=== PATIENT | male | born 1975 | race Caucasian/White ===

== ENCOUNTER 2023-07-13 12:33 | Outpatient (OUT) | payer BC, SELFPAY ==
[2023-07-13 12:52] LABS: Basophils Absolute Auto 0.1 10^3/uL (0.0-0.1); Basophils Percent Auto 0.9 % (0.2-2.0); Eosinophils Absolute Auto 0.1 10^3/uL (0.0-0.7); Eosinophils Percent Auto 0.6 % (0.9-7.0); Hematocrit 45.1 % (42.0-54.0); Immature Granulocytes Abs Auto 0.02 10^3/uL (0.00-0.03); Immature Granulocytes Pct Auto 0.2 % (0.0-0.5); Lymphocytes Absolute Auto 1.8 10^3/uL (1.2-3.8); Lymphocytes Percent Auto 21.5 % (20.5-60.0); Mean Corpuscular Hemoglobin 20.4 pg (25.9-34.0); Mean Corpuscular Volume 65.8 fL (80.0-94.0); Mean Platelet Volume 8.8 fL (9.5-13.5); Monocytes Absolute Auto 0.5 10^3/uL (0.3-0.8); Monocytes Percent Auto 6.3 % (1.7-12.0); Neutrophils Absolute Auto 5.8 10^3/uL (1.4-6.5); Neutrophils Percent Auto 70.5 % (43.0-75.0); Platelet Count 271 10^3/uL (150-450); Red Blood Count 6.85 10^6/uL (4.70-6.10); Red Cell Distribution Width 18.7 % (11.0-15.0); White Blood Count 8.2 10^3/uL (4.0-11.0)
[2023-07-13 13:18] LABS: Estimated Average Glucose 148 mg/dL; Glycohemoglobin A1C 6.8 % (4.5-6.2)
[2023-07-13 13:52] LABS: Prostate Specific Antigen Scrn 0.45 ng/mL (<=4.00)
[2023-07-13 14:07] LABS: Alanine Aminotransferase 36 U/L (16-63); Albumin Globulin Ratio 0.9; Albumin Level 3.8 g/dL (3.4-5.0); Alkaline Phosphatase 61 U/L (46-116); Anion Gap 17.7; Aspartate Amino Transferase 17 U/L (15-37); BUN Creatinine Ratio 16.7; Bilirubin Direct 0.1 mg/dL (0.0-0.2); Bilirubin Total 0.5 mg/dL (0.2-1.0); Calcium 9.2 mg/dL (8.5-10.1); Carbon Dioxide 25.2 mmol/L (21.0-32.0); Chloride 103 mmol/L (98-107); Chol HDL Ratio 4.9; Cholesterol 196 mg/dL (<=200); Estimated GFR (African America >60 (>=60); Estimated GFR (Non-African Ame >60 (>=60); Globulin 4.1 g/dL; Glucose 187 mg/dL (74-106); HDL Cholesterol 40 mg/dL (40-60); Potassium 3.9 mmol/L (3.5-5.1); Sodium 142 mmol/L (136-145); Thyroid Stimulating Hormone 1.439 uIU/mL (0.358-3.740); Total Protein 7.9 g/dL (6.4-8.2); Triglycerides 186 mg/dL (<=150); VLDL CHOLESTEROL 37.2 mg/dL
== END 2023-07-13 12:34 | disposition home or self-care (01) ==
PROVIDERS: PCP Family Medicine; Visit Provider Family Medicine
DX: Z00.00 Encounter for general adult medical examination without abnormal findings (principal); E55.9 Vitamin D deficiency, unspecified; Z12.5 Encounter for screening for malignant neoplasm of prostate
CPT/HCPCS: 36415; 80048; 80061; 80076; 82306; 83036; 84443; 85025; G0103

== ENCOUNTER 2023-11-13 19:55 | Outpatient (OUT) | payer BC, SELFPAY | END 2023-11-13 19:56 | disposition home or self-care (01) | LOC: SLEEP 19:55 | PROVIDERS: PCP Family Medicine; Visit Provider Family Medicine | DX: G47.33 Obstructive sleep apnea (adult) (pediatric) (principal) | CPT/HCPCS: 95810 ==

== ENCOUNTER 2023-11-20 20:58 | Outpatient (OUT) | payer BC, SELFPAY ==
--- OUTSIDE RECORDS SUMMARY | 2023-11-20 21:01 | XMS_ITS | CCD ---
Author Name Unknown Address [address] [place] [address] Organization [facility] Care Team Providers Care Editorial Assistant Name Role Phone OUMAR, DR PETER Wei Admitting Unavailable OUMAR, DR PETER Wei Attending Unavailable OUMAR, DR PETER Wei Primary Care Unavailable OUMAR, DR PETER Wei Consulting Unavailable OUMAR, DR PETER Wei Admitting Unavailable OUMAR, DR PETER Wei Attending Unavailable OUMAR, DR PETER Wei Primary Care Unavailable JERMAINE, DR BERNARDINO Bloom Consulting Unavailable NATHANIELERER, DR PETER Wei Consulting Unavailable Amber Mendoza Unavailable PETER OSEGUERA Attending Unavailable Medications Current Medications Medication Drug Class(es) Dates Sig (Normalized) Sig (Original) [id number] 200 actuat albuterol 0.09 mg/actuat metered dose inhaler (1 source) beta2-Adrenergic Agonist Start: 10-06-2022 take 2 puff(s) by inhalation every four hours as needed Albuterol Sulfate HFA 108 (90 Base) MCG/ACT 2 puffs as needed Inhalation every 4 hrs Sep, Active Aspirin (1 source) Platelet Aggregation Inhibitor, Nonsteroidal Anti-inflammatory Drug Baby Aspirin Active atorvastatin 40 mg oral tablet (1 source) HMG-CoA Reductase Inhibitor Atorvastatin Calcium 40 MG Oral for 90 Days Active azithromycin 250 mg oral tablet (1 source) Macrolide Antimicrobial Start: 10-06-2022 Azithromycin 250 MG 2 tablets on the first day, then 1 tablet daily for 4 days Orally Once a day for 5 day(s) Sep, Active dapagliflozin 10 mg oral tablet (1 source) Sodium-Glucose Cotransporter 2 Inhibitor Farxiga 10 MG Oral for 90 Days Active Dexcom G6 Transmitter - (1 source) Dexcom G6 Transmitter - for 90 Days Active glipiZIDE 10 mg oral tablet (1 source) Sulfonylurea glipiZIDE 10 MG Oral for 90 Days Active 24 hr metFORMIN hydrochloride 500 mg extended release oral tablet (2 sources) Biguanide metFORMIN HCl ER 500 MG Oral for 90 Days Active metFORMIN HCl Ac tive methylPREDNISolone 4 mg oral tablet (1 source) Corticosteroid Start: 10-06-2022 methylPREDNISo lone 4 MG as directed Orally Once a day for 6 days Sep, Active Problems Active Problems Problem Classification Problem Date Documented Da te Episodic/Chronic Chronic obstructive pulmonary disease and bronchiectasis (1 source) Bronchitis, not specified as acute or chronic Episodic Immunizations and screening for infectious disease (2 sources) Contact with and (suspected) exposure to other viral communicable diseases; Translations: [Contact with and (suspected) exposure to other viral communicable diseases] Episodic Nutritional deficiencies (1 source) Vitamin D deficiency, unspecified; Translations: [VITAMIN D DEFICIENCY UNSPECIFIED] Onset: 02-09-2022 Chronic Other screening for suspected conditions (not mental disorders or infectious disease) (1 source) Encounter for screening for malignant neoplasm of prostate; Translations: [ENC SCREEN MALIG NEOPLASM PROSTATE] Onset: 02-09-2022 Episodic Past or Other Problems Problem Classification Problem Date Documented Da te Episodic/Chronic Other non-traumatic joint disorders (4 sources) Pain in right shoulder; Translations: [PAIN IN RIGHT SHOULDER] Onset: 07-19-2021 Episodic Results Test Name Value Interpretation Reference Range Facility Quick Fluon 10-06-2022 FLUAV Ab CF (S) [Titer] Negative [employer] Other FLUBV Ab CF (S) [Titer] Negative [employer] Other Coding Summaryon 04-04-2022 Coding Summary HTMLBase 64 TgxqjbxuHRi1fMj+PGh lYWQ+LB4VIDWiZ83cmM MpyN2YU6rFUB5EFBQKH ZWCAD9DBT1vtZS6TMqj F4WswoGw LsbfgNKoVU57KBr7IPD 7sEqhGBjjwM4toBPoO2 m2HrZwDM33lX75ADneP TIeMpL4SjEazsxbpPJp Z2veMdRwzEJyLxk+PHR hYmxlIHdpZHRoPScxMD WdVfFsuWynLO1uSj7vO GVyLWNvbGxhcHNlOiBj b2wbMRLdUWkqPJ0jrGl mP2MxrCJ4LSHag0j2It 48dHI+EXBpBRX7oQdfK Gahn785UdVxs0npUYC4 sCQdUKyuUZD3O13ab6P 6HIDsNVOrHAZ6eIO3hZ 6nbCtggntkR4FhjUBvP fS1KPU4yWKrvW6yiPfq aesnaH1tStl+Q83LMB4 LOKMHDG8RMzd2F2DaIf wvdHI+JP52SWThGT09b OUcxMOfc5vfgLq9TgUp EEPqCHU2kLbpDYbmk0U oRLTbU31ndIIvi7Q8CY QpuPagnMTcOlZshUO5n S2hIEncgwoou7xyvqnc Ayxyy7xxfi64hX15T95 kSSjpFVFuNPF4LKReLY EexRqczu6nqO7fHy9+I Xfbx6zyt3qtvUl7RlOl FQKglnKxbDibNNK8l9I wXs76P9VczLzsq3HuLh u2ri79uZZmn6L5zCR1P DroVZZthS4mNIkjZqH5 PMAhMyAgcY19cOJyPWm lRc5rmMctrMnaCO0rLO MsgezxZWGnrO3zIOEct GZyhKezRT0zFTEwqrns t541RkPwHQK8QXBzoYB pZ4QmhZ2vPjAsZSQtLS UuB1HhuGZdEGevV305H SxnVoW3AFAytpWiB8Zn HYJjjPqgDkT3y3F9Sm2 Fo6QzqnppNMN2VPjeCV Q7KgNhCdVlUqM7E8FeP vs4GTNcbApuTZ9tA8Am DEKqlauhznzoaEQ9TJD wOIQhsU25dXQrIKqeWr 0tr7L8e109CXJbLOZqo A94Vg4ilGgzHOJlpLMK dE4zlwfnt1wknjguKxW fPSAzYNu6ECd2SCKedY upWkSkLFU1GsM0GSQ7t YCbqN4vrXceuhbelC7g Oyc+P30pjA4gDLC7BZN 1hvngXIPxyeJyBM92HB 56E8HsYoskzRXmvHG+P MPtyqBorIlgEY4bAzSs h6sei6CiKZykV4HsUOH wHWblUfq9RTSkQNQ3eO J2nI4qMSWhMSbvm6W3s IV3C8CfcpDqgr5ha4pq KWYoMEfqN97crZTas1R 6TTIrqXA4QVMylQarJm TwpM70Rwp+PGNvbGdyb 6HpThlqr6tvr1lkxJl3 IjMwJSIgdmFsaWduPSJ 9a4ObAa82K90dGZfvUT RoPSIxNSUiIHZhbGlnb q5zmX5wPl4+PGNvbCB3 yWF2bC0hMNBiEoX6MTn dV714AeXwfRXrMjuhr0 xqw8cbrKq4TyPaSWDyy eWbfVqxKZN6v5FmWk05 V13iIIngLQVyVOEzVNB dYREysEwdkw4edL4oZl 8+WF6sg7shyp75lC98n HI+LOCxBIT6bQnjNHpt XXEpmA3uAPbjAoI2YKV xClGgjF13vJIoMVijEt 0dzHmfyXrhKH9vPEGyv rfnt733QfIqa5xcZBBp bDJqTRklFFC6L29bw6G 6JYLjVMKvLYB9eGG9jB 1hbGlnbjogbGVmdDsgd fIzqArmVAzeAQwfW088 IHRvcDsnPlBhdGllbnQ xDzJfVUi8H8YwMnq6NH IdhGdbTC8kxRIiMGuoD g1flQatuWvyTE2eJZRb gruar818LoQck6vvKHR rpPLqBFqiOBN8G82jb2 W0IESoMCDiHVL3xKT4y D5lzPbvetdgqMVkjQvc iuPfyPybPNczUTxiU00 6IHRvcDsnPkJpcnRoIE WiwPS1IN36LC67dTFbl 4D4yBN4W6UkZUHymteh gzbafDM9OWQpPOFvbW1 7Yq4ywUpoXm0sPLLfYT A8YQWbnPSyF7HrlK4eP yXlZMDaSOVpC4KflODc LFvuT516UCshTmW7GVD muwIlV6ZnWVNilKtlIz N7i1A6Xq1WR6A6RN00F W08vSOyb1U1gNF5R3Ob IGTuypymlkdroHO5OOR eTTIblY81Ql7mmKdeVo 8tOUNqFBQ7IZUveDVdS 7FbfC2yYwIfYNIwSTTd K9DfzKUnEAcmY667LWg jYnT9SVVmsgPoM3LdPC VyxLvhLoD7p9C7Hw8QA Ei0UQ24CD80yMHlg7Y5 yUW8V1FmYPUsrluhkqv jcWQ0SIXjLLQfmT10Np 4ilQwcDs5kJAXxBDZ6A MTlmHXwW8JksH2sSzQy MDHrHNIdG2DxvVAiUMs eX024FTenPyA6SYIwoy SzP8FbJLOmuYqqLiT8r 3Y9Iz6MOUZqYI02XQE4 uDO8HJ16TQ97N1IpZrl vdGFibGU+PHRhYmxlIH dpZHRoPScxMDAlJyBzd RkqPD5aOf8aXWWoGNKg hNuddQVeZzTwy9kkAXO pTPpjZN5tiQztV7VzsK B3TPIuj5a0Ye32N31eF 3JvdXA+DMWntVR0mRX9 zC2sIgEuIuJ8SXslC69 6SzFbpDQqOoarx1idh0 bxkPr3XzK3HHXyjcZrq YhtPKE0k4WkEx68I43f IHdpZHRoPSIxNSUiIHZ ciVemni8ffQ3cGg9+PG HaoDO3zWH4cA0rZpHvE hX8UIncU720SgXhnWTr Ixwee2kaa4zivTb9NqP pXYJgfrQnoUfeJKH4w9 XzUz65B3BgkOtmv1KiQ np5zg55yEQyp4I4tUF0 F3PqIWIeuvjrfJKlzVn pRY6qOCLyyjlzKRGpuN 5nALGdA5f7RqTrRyI8P TqwM6OyzqV0IWPfqXTp BSvoIGP3L07va7K1QBY jQIYeUES4dJR7jX6jhS lnbjogbGVmdDsgdmVyd StjTQvlJTwbR969QLHn cHksCFSsmH2zKYLtkIB qgYqpZO3zIYHwfixiCx RXSVNTLCBNQVRUSEVXI I2WL8rJOIm7G2HfUbl5 HKOdyGmzNA1ejGQfNBi jLc5igZqovSlgCS6xVA ItcdjlNNRrwD9yKQWll EBhuNavVF0wKWOiliex h701GhCqNQB5XEZzhBO xQ3GsgL9wOwCvVRKuTC CmA9ElbWOlGYmsL613J KkcJrK9LWPcaeZpN3Rz GBMuaJsqSwS6w0U3Jk9 bVR5kXy2wXNj5FA48NE 16oUQmp7M0jHY9Q1BrQ UPpvrzyjkumkNF2NHAs GXRehZ23yUOjFIhyRg7 wk3H4h470UHNfVVLjdO 09Yx6lsGlwLQAgvGUPb E6pjznqk2atfzhnQoPr KQVoDVu3HBz7UICzjKe tQtJtBHQ9OgZ8MRK6aN HxjY5dpJujgutqaB5rE yc+CSJxXYTkjsR8F5Sk Gog6GXLcdKdsRA2edTL xLWiqMo0cvBaqiSveGS 3qYOInskurYUUmyM9nS LAlwKBzvFsmUA4sRTTd otdqm885ZdGnKYS2TXO gwZFpU2FrzS4zJnGwQX BgTUQcS6PmzKKjBFzeF 582BOqgZeW2XCYsdbWl W8FxSILhmGxrBuH3v5E 3Vl1MKLeREV22OK76eN Nhj7Z8tZM9U2GuZXOjk acwndwlxJE4OZAlVDEa kB55tREhHGpxQf2ex5H 5c072QHVtPQEtwP49Re 3zoGxcDEIehIDThN0nb dnwb8qkamswXnYwBXOp PTa8WKl4BXXaaLrsGzB rXBP8CyI1PRD0zWExvC 0rgTlovrvexM2mApe+T 5I8D9UcPzintRU+PC90 FHLxAY01iJWatEMfc3s sbIg7OlChDXMwMBA0rP zmUUmpu1CxPTPmX01kv EGpe9C7AFDhvSihrIOx FwZroTG8qL8pOIvraip pr4rjxnrlSofpt2hyrf 36wO29M20gGUsoGQPgQ MTmBPHtCSZxdUwlyg5b pV1mDo3+KZCfkFI4sXO 5eV9tIeVyVxH5DJetP0 87MgWkdIBkVwjbi4bnw 6kryWn6NiHpWQSjfbEy jOpbVJD7y1NbVn99G03 sIHdpZHRoPSIyMCUiIH PeiItqgv5pkE5iTy6+P P5ie5dqmk15jY14eUY+ NNJfJYN6bMntTYtlRLB wtH6gGUvjJvG5OXRtUh RzsQ65fEFpSZcjUq7io PxoiFihST6sZSVbxejv d416YpGuz2hwNGVpcME pBIpyXNO5E21rz0C2DN NvDLYaWPR1gOM7jT7zc GlnbjogbGVmdDsgdmVy tPjiKUgqIWolV469CMQ vsHdpMnBycRXuB9qbkf VMOO9fEwwelML+PHRkI TU0eKndJUavSMPgxN4k ZBTuI4r6CqJyCnT0VAr hP0QfglZ4TDZakKOtNM CxyWZJcV5qvtcqq2ebd zmmSoArUAGoAKs0SOq9 CICodOjkLbCzOOA7DpD 9KFY6zEFliF9hbJayrw jwbF7tPdh+RklOOjwvd GQ+OCJnOGQ7rTxlYNow PVMcmW0lGVVcA4a2KtL aUtS3OJggZ7CxfjI1IG EdxJWhVFXjgRLGyW4zh vfmc9ngbysmFjWoBGUi EGr5ITu9CTVigDxjRgP oTPC0YsU3LXT7jWGfcI 3olEnysqryjT5fSoj+T VJOOjwvdGQ+PHRkIHN0 eNeuQEvqNPPesA3yJKJ gR6v9LwGeSyB7VUciM9 XapuV3HFQrkDBzNBXdu YRHkT5ouutqd0awzxlx RdMzTTXjBEy8BPj0SCC ewUbyVdIiRMB8NvH9CR C5dAHkoV2huJrablpsk G9wOyc+WIL2RLH2DP11 HA91O7DcZnixxVXphYW +PHRhYmxlIHdpZHRoPS zfTFEhFoOglEunJP0wT l1tDRTiFPLqtQvfmDZv OiB (more content not included)... Normal [facility] ED Clinical Summaryon 2021 ED Clinical Summary [facility] ? Urgent Care [address] [place], [place] [id number] Clinical Summary PERSON INFORMATION Name: KRISTI GOMEZ Age: 46 Years Sex: MALE : 1975 MRN: Acct#: Visit Reason: Hip pain; RIGHT HIP PAIN Arrival: 03/29/2022 15:33:12 Discharge: 03/29/2022 17:49:00 LOS: 000 02:16 Check In: 03/29/2022 15:33:12 Checkout: 03/29/2022 17:49:00 Address: [address] [place], [place] [address] [address] PCP: PETRE OSEGUERA PROVIDER INFORMATION Provider Role Assigned Unassigned Reji Gautam PA-C ED PA 03/29/2022 15:43:45 Carrillo Burger [employer] Nurse 03/29/2022 15:49:57 Tasia Oconnell [employer] Nurse 03/29/2022 16:59:28 VITALS INFORMATION Vital Sign Triage Latest Temperature Tympanic Temperature Temporal Artery Pulse Rate O2 Sat 96 % 96 % Respiratory Rate Blood Pressure /93 mmHg /93 mmHg MEDICAL INFORMATION Medications Given: Allergy Information: No Known Medication Allergies PHYSICIAN DOCUMENTATION DISCHARGE INFORMATION: Discharge Disposition: Home Discharge Location: Home PATIENT EDUCATION INFORMATION Instructions: Hypertension, Adult, Qxqm-lq-Ujzy; Hip Pain; Sciatica, Xubx-qa-Falf Follow-Up: With: Address: When: PETER OSEGUERA [address] [place] [phone] [facility] (1) Within 1 week Comments: Please follow-up with Dr. Oseguera, call the office schedule an appointment to be seen in a week or sooner for continued care, please take your baclofen and Medrol Dosepak as prescribed, please do not forget that baclofen as a muscle relaxer can cause sedation, be careful not to work, drive, or operate machinery while you are on baclofen, try not to take any additional jvii-buo-cqquixe nonsteroidals while you are on the Medrol Dosepak, and return back to the urgent care center for any worsening symptoms, concerns, or complications. Please have your doctor monitor your blood pressures. DIAGNOSIS: 1:Right sided sciatica; 2:Right hip pain; 3:Elevated blood pressure reading without diagnosis of hypertension Patient Understands: Yes - Patient/family/home care aide verbalizes understanding of instructions given Comment: Normal [facility] ED Patient Summaryon 022 ED Patient Summary [facility] ? Urgent Care [address] [place] [address] PATIENT DISCHARGE INSTRUCTIONS Patient Information Name: KRISTI GOMEZ Age: 46 Years Date of : 1975 Reason For Visit: Hip pain; RIGHT HIP PAIN Arrival Time: 03/29/2022 15:33:12 Primary Care Physician: PETER OSEGUERA Attending Physician: Reji Gautam PA-C Comment: Patient Education With: Address: When: PETER OSEGUERA [address] [place], [place] [id number] Business (1) Within 1 week Comments: Please follow-up with Dr. Oseguera, call the office schedule an appointment to be seen in a week or sooner for continued care, please take your baclofen and Medrol Dosepak as prescribed, please do not forget that baclofen as a muscle relaxer can cause sedation, be careful not to work, drive, or operate machinery while you are on baclofen, try not to take any additional oqxg-buo-bifgzpb nonsteroidals while you are on the Medrol Dosepak, and return back to the urgent care center for any worsening symptoms, concerns, or complications. Please have your doctor monitor your blood pressures. Hypertension, Adult Hypertension is another name for high blood pressure. High blood pressure forces your heart to work harder to pump blood. This can cause problems over time. There are two numbers in a blood pressure reading. There is a top number (systolic) over a bottom number (diastolic). It is best to have a blood pressure that is below 120/80. Healthy choices can help lower your blood pressure, or you may need medicine to help lower it. What are the causes? The cause of this condition is not known. Some conditions may be related to high blood pressure. What increases the risk? ? Smoking. ? Having type 2 diabetes mellitus, high cholesterol, or both. ? Not getting enough exercise or physical activity. ? Being overweight. ? Having too much fat, sugar, calories, or salt (sodium) in your diet. ? Drinking too much alcohol. ? Having long-term (chronic) kidney disease. ? Having a family history of high blood pressure. ? Age. Risk increases with age. ? Race. You may be at higher risk if you are . ? Gender. Men are at higher risk than women before age 45. After age 65, women are at higher risk than men. ? Having obstructive sleep apnea. ? Stress. What are the signs or symptoms? ? High blood pressure may not cause symptoms. Very high blood pressure (hypertensive crisis) may cause: ? Headache. ? Feelings of worry or nervousness (anxiety). ? Shortness of breath. ? Nosebleed. ? A feeling of being sick to your stomach (nausea). ? Throwing up (vomiting). ? Changes in how you see. ? Very bad chest pain. ? Seizures. How is this treated? ? This condition is treated by making healthy lifestyle changes, such as: ? Eating healthy foods. ? Exercising more. ? Drinking less alcohol. ? Your health care provider may prescribe medicine if lifestyle changes are not enough to get your blood pressure under control, and if: ? Your top number is above 130. ? Your bottom number is above 80. ? Your personal target blood pressure may vary. Follow these instructions at home: Eating and drinking ? If told, follow the DASH eating plan. To follow this plan: ? Fill one half of your plate at each meal with fruits and vegetables. ? Fill one fourth of your plate at each meal with whole grains. Whole grains include whole-wheat pasta, brown rice, and whole-grain bread. ? Eat or drink low-fat dairy products, such as skim milk or low-fat yogurt. ? Fill one fourth of your plate at each meal with low-fat (lean) proteins. Low-fat proteins include fish, chicken without skin, eggs, beans, and tofu. ? Avoid fatty meat, cured and processed meat, or chicken with skin. ? Avoid pre-made or processed food. ? Eat less than 1,500 mg of salt each day. ? Do not drink alcohol if: ? Your doctor tells you not to drink. ? You are , may be , or are planning to become . ? If you drink alcohol: ? Limit how much you use to: ? 0?1 drink a day for women. ? 0?2 drinks a day for men. ? Be aware of how much alcohol is in your drink. In the [place] one drink equals one 12 oz bottle of beer (355 mL), one 5 oz glass of wine (148 mL), or one 1? oz glass of hard liquor (44 mL). Lifestyle ? Work with your doctor to stay at a healthy weight or to lose weight. Ask your doctor what the best weight is for you. ? Get at least 30 minutes of exercise most days of the week. This may include walking, swimming, or biking. ? Get at least 30 minutes of exercise that strengthens your muscles (resistance exercise) at least 3 days a week. This may include lifting weights or doing Pilates. ? Do not use any products that contain nicotine or tobacco, such as cigarettes, e-cigarettes, and chew (more content not included)... Normal [facility] Urgent Care [place] 022 Urgent Care Record [facility] ? Urgent Care [address] [place] [address] PATIENT DISCHARGE INSTRUCTIONS Patient Information Name: KRISTI GOMEZ Age: 46 Years Date of : 1975 Reason For Visit: Hip pain; RIGHT HIP PAIN Arrival Time: 03/29/2022 15:33:12 Primary Care Physician: PETER OSEGUERA Attending Physician: Reji Gautam PA-C Comment: Visit Diagnosis: Diagnoses This Visit Elevated blood pressure reading without diagnosis of hypertension (R03.0) Hip pain (69756077) Right hip pain (M25.551) Right sided sciatica (M54.31) If you received any narcotics, sedation, or any other medication that causes drowsiness for the next 24 hours, unless otherwise directed: ? Do not drive a car. ? Do not operate machinery such as power tools, lawn mowers, drills, sewing machines, or stoves ? Avoid alcoholic beverages and drugs for allergies, nerves, or sleep ? Do not make important personal or business decisions or sign any legal documents With: Address: When: [facility] [place] [place] [phone] Business (1) Within 1 week Comments: Please follow-up with Dr. Oseguera, call the office schedule an appointment to be seen in a week or sooner for continued care, please take your baclofen and Medrol Dosepak as prescribed, please do not forget that baclofen as a muscle relaxer can cause sedation, be careful not to work, drive, or operate machinery while you are on baclofen, try not to take any additional ohsb-prq-ytahbgy nonsteroidals while you are on the Medrol Dosepak, and return back to the urgent care center for any worsening symptoms, concerns, or complications. Please have your doctor monitor your blood pressures. Medication Information: The exam and treatment you received today in the [facility] were for an urgent problem and are not intended as complete care. It is important for you to follow up with a doctor, nurse practitioner, or physician?s contact center assistant for ongoing care. If your symptoms become worse or you do not improve as expected and you are unable to reach your usual health care provider, you should return to the Emergency Department, we are available 24 hours a day. For those patients who have received Radiology results, the interpretation of your X-ray as given to you by our Urgent Care physician is only a preliminary report. The Radiologist will review your films and if there is a change in the diagnosis you will be notified by phone. Please make sure you have provided a working phone number so we can reach you if necessary. In the event that you had a lab culture while you were a patient in the Urgent Care, you will be notified by phone if there is a need to change your antibiotic. Please make sure you have provided a working phone number so we can reach you if necessary. [facility] Urgent [facility] has provided you with a complete list of medications post discharge. Please inform your math specialist/provider of your visit and for further instruction on these medications. Any specific questions regarding your chronic medications and dosages should be discussed with your primary care physician(s) and/or pharmacist. New Medications [facility], [address] [place], [place] [id number], [phone] baclofen (baclofen 10 mg oral tablet) 1 tab(s) Oral 3 times a day for 10 Days. Refills: 0. methylPREDNISolone (Medrol Dosepak 4 mg oral tablet) 1 packet(s) Oral once. as directed on package labeling. Refills: 0. Medications to Continue That Have Not Changed Other Medications albuterol (albuterol 90 mcg/inh inhalation aerosol) 2 puff(s) Inhalation every 6 hours as needed for wheezing. Refills: 0. amphetamine-dextroa mphetamine (Adderall 20 mg oral tablet) 1 tab(s) Oral 2 times a day. atorvastatin (atorvastatin 40 mg oral tablet) 1 tab(s) Oral every day. azithromycin (Zithromax 250 mg oral tablet) 1 packet(s) Oral once. as directed on package labeling. Refills: 0. dapagliflozin (Farxiga 10 mg oral tablet) 1 tab(s) Oral every day. glipiZIDE (glipiZIDE 10 mg oral tablet) 1 tab(s) Oral every day. meloxicam (meloxicam 15 mg oral tablet) 1 tab(s) Oral every day. metFORMIN 500 Milligram Oral every day. ondansetron (Zofran ODT 4 mg oral tablet, disintegrating) 1 tab(s) Oral Every 8 hours as needed as needed for nausea/vomiting for 3 Days. Refills: 0. Visit Information Allergies: Substance Reaction Symptoms Type Comments No Known Medication Allergies Drug Vital Signs: Vitals and Measurements this Visit (last charted value for your 03/29/2022 visit) Vital Signs This Visit Temperature Oral: 37.0 DegC Peripheral Pulse Rate: 90 bpm Respiratory Rate: 18 br/min Systolic Blood Pressure: 126 mmHg Diastolic Blood Pressure: 93 mmHg SpO2: 96 % Oxygen Therapy: Room air Measurements This Visit Height/Length Measured: 177.80 cm Weight Measured: 117.93 kg Body Mass Index: 37.3 (more content not included)... [facility] XR Femur Righton 03-29-2022 XR Femur Right EXAM: XR Femur Right HISTORY: Pain without history of injury COMPARISON: Pelvis x-ray of same day TECHNIQUE: 4 views FINDINGS: No fracture, dislocation, subluxation or osseous lesions. Enthesophytes off the greater trochanter. The hip joint space is maintained. Small osteophytes off the femoral head and acetabulum. The knee joint is unremarkable. IMPRESSION: Mild age-related hip joint changes with no acute abnormality Final Dictated by: Randy Crews DO Dictated DT/TM: 03/29/22 5:17 Signed (Electronic Signature): Randy Crews DO 03/29/22 5:18 pm Technologist: SADA [facility] XR Hip Complete Right w/ Pel vison 03-29-2022 XR Hip Complete Right w/ Pelvis EXAM: XR Hip Complete Right w/ Pelvis HISTORY: Pain without history of injury COMPARISON: Right femur films, same date TECHNIQUE: An AP view of the pelvis with 2 additional views of the right hip are performed. FINDINGS: There is no acute fracture. The bony structures are intact. Joint spaces are maintained. Unremarkable soft tissues. IMPRESSION: No acute bony abnormality. Final Dictated by: Ramon Sánchez Dictated DT/TM: 03/29/22 5:15 Signed (Electronic Signature): Ramon Sánchez 03/29/22 5:18 pm Technologist: SADA [facility] CBC AUTO DIFFon 02-07-2022 BASO # 0.1 103/ul Normal 0.0-0.1 [facility] Comment on above: Performed By: #### C BC #### [facility] [address] [address] [address] [place] Pennington Basophils/100 WBC (Bld) 0.7 % Normal 0.2-2.0 [facility] Comment on above: Performed By: #### C BC #### [facility] [address] [address] [address] Cleveland Pennington EO # 0.1 103/ul Normal 0.0-0.7 [facility] Comment on above: Performed By: #### C BC #### [facility] [address] [address] [address] Cleveland Pennington Eosinophils/100 WBC (Bld) 1.2 % Normal 0.9-7.0 [facility] Comment on above: Performed By: #### C BC #### [facility] [address] [address] [address] [place] Pennington Erythrocyte distribution width (RBC) [Ratio] 19.0 % Critically high 11.0-15.0 [facility] Comment on above: Performed By: #### C BC #### [facility] [address] [address] [address] [place] Pennington Hematocrit (Bld) [Volume fraction] 42.4 % Normal 42.0-54.0 [facility] Comment on above: Performed By: #### C BC #### [facility] [address] [address] [address] [place] Pennington Hemoglobin (Bld) [Mass/Vol] 12.9 g/dL Critically low 14.0-18.0 [facility] Comment on above: Performed By: #### C BC #### [facility] [address] [address] [address] [place] Pennington IG # 0.04 10e3/ul Critically high 0.00-0.03 [facility] Comment on above: Performed By: #### C BC #### [facility] [address] [address] [address] Cleveland Pennington IG % 0.5 % Normal 0.0-0.5 [facility] Comment on above: Performed By: #### C BC #### [facility] [address] [address] [address] [place] Pennington LYMPH # 2.7 103/ul Normal 1.2-3.8 [facility] Comment on above: Performed By: #### C BC #### [facility] [address] [address] [address] [place] Pennington Lymphocytes/100 WBC (Bld) 32.4 % Normal 20.5-60.0 [facility] System Comment on above: Performed By: #### C BC #### [facility] [address] [address] [address] Cleveland Pennington MANUAL DIFF REQ NO Normal [facility] Comment on above: Performed By: #### C BC #### [facility] [address] [address] [address] Cleveland Pennington MCH (RBC) [Entitic mass] 20.3 pg Critically low 25.9-34.0 [facility] Comment on above: Performed By: #### C BC #### [facility] [address] [address] [address] Cleveland Pennington MCHC (RBC) [Mass/Vol] 30.4 g/dL Normal 29.9-35.2 [facility] Comment on above: Performed By: #### C BC #### [facility] [address] [address] [address] Cleveland Pennington MCV (RBC) [Entitic vol] 66.8 fL Critically low 80.0-94.0 [facility] Comment on above: Performed By: #### C BC #### [facility] [address] [address] [address] Cleveland Pennington MONO # 0.7 103/ul Normal 0.3-0.8 [facility] Comment on above: Performed By: #### C BC #### [facility] [address] [address] [address] Cleveland Pennington Monocytes/100 WBC (Bld) 8.4 % Normal 1.7-12.0 [facility] Comment on above: Performed By: #### C BC #### [facility] [address] [place] [address] Dr. Cleveland Pennington NEUT # 4.7 103/ul Normal 1.4-6.5 [facility] Comment on above: Performed By: #### C BC #### [facility] [address] [place] [address] Dr. Cleveland Pennington Neutrophils/100 WBC (Bld) 56.8 % Normal 43.0-75.0 [facility] Comment on above: Performed By: #### C BC #### [facility] [address] [place] [address] Dr. Cleveland Pennington Platelet mean volume (Bld) [Entitic vol] 9.2 fL Critically low 9.5-13.5 [facility] Comment on above: Performed By: #### C BC #### [facility] [address] [place] [address] Dr. Cleveland Pennington PLT 252 103/ul Normal 150-450 [facility] Comment on above: Performed By: #### C BC #### [facility] [address] [place] [address] Dr. Cleveland Pennington RBC 6.35 106/ul Critically high 4.70-6.10 [facility] Comment on above: Performed By: #### C BC #### [facility] [address] [address] [address] Cleveland Pennington WBC 8.3 103/ul Normal 4.0-11.0 [facility] Comment on above: Performed By: #### C BC #### [facility] [address] [address] [address] Cleveland Pennington GLYCOHEMOGLOBIN A1Con 2021 ADA RECOMMENDATION SEE BELOW Normal [facility] Comment on above: Result Comment: ADA RECOMMENDED LIMIT 4.0 - 6.0 ADA THERAPEUTIC TARGET < 7.0 ACTION SUGGESTED > 7.0 Performed By: #### A 1C #### [facility] [address] [address] [address] Cleveland Pennington Glucose [Mass/Vol] 263 mg/dL Normal [facility] Comment on above: Performed By: #### A 1C #### [facility] [address] [address] [address] Cleveland Pennington HbA1c (Bld) [Mass fraction] 10.8 % Critically high 4.5-6.2 [facility] Comment on above: Performed By: #### A 1C #### [facility] [address] [address] [address] Cleveland Pennington LIPID PROFILEon 02-07-2022 CHOL-HDL RATIO NORM SEE BELOW Normal [facility] Comment on above: Result Comment: 3.3 - 4.4 LOW RISK 4.4 - 7.1 AVERAGE RISK 7.1 - 11.0 MODERATE RISK >11.0 HIGH RISK Performed By: #### L IPID, LIVER, BMP, TSH #### [facility] [address] [address] [address] Cleveland Pennington Cholesterol [Mass/Vol] 179 mg/dL Normal <=200 [facility] Comment on above: Performed By: #### L IPID, LIVER, BMP, TSH #### [facility] [address] [address] [address] Cleveland Pennington Cholesterol in HDL [Mass/Vol] 39 mg/dL Critically low 40-60 [facility] Comment on above: Performed By: #### L IPID, LIVER, BMP, TSH #### [facility] [address] [address] [address] Cleveland Pennintgon Cholesterol in LDL [Mass/Vol] 91.0 mg/dL Normal [facility] Comment on above: Performed By: #### L IPID, LIVER, BMP, TSH #### [facility] [address] [address] [address] Cleveland Pennington Cholesterol.total/Ch olesterol in HDL [Mass ratio] 4.6 {ratio} Normal [facility] Comment on above: Performed By: #### L IPID, LIVER, BMP, TSH #### [facility] [address] [address] [address] Cleveland Pennington HDL NORMAL > or = 60 mg/dl - LOW CARDIOVASCULAR RISK <40 mg/dl - HIGH CARDIOVASCULAR RISK Normal [facility] Comment on above: Performed By: #### L IPID, LIVER, BMP, TSH #### [facility] [address] [address] [address] Cleveland Pennington LDL CALC NORMAL SEE BELOW Normal [facility] Comment on above: Result Comment: <100 mg/dl OPTIMAL 100 - 129 mg/dl NEAR OR ABOVE OPTIMAL 130 - 159 mg/dl BORDERLINE HIGH 160 - 189 mg/dl HIGH >190 mg/dl VERY HIGH Performed By: #### L IPID, LIVER, BMP, TSH #### [facility] [address] [address] [address] Cleveland Pennington Triglyceride [Mass/Vol] 245 mg/dL Critically high <=150 [facility] Comment on above: Performed By: #### L IPID, LIVER, BMP, TSH #### [facility] [address] [address] [address] Cleveland Pennington VLDL CALC 49.0 mg/dL Normal [facility] Comment on above: Performed By: #### L IPID, LIVER, BMP, TSH #### [facility] [address] [address] [address] Cleveland Pennington LIVER PROFILEon 02-07-2022 Albumin [Mass/Vol] 3.3 g/dL Critically low 3.4-5.0 [facility] Comment on above: Performed By: #### L IPID, LIVER, BMP, TSH #### [facility] [address] [address] [address] Cleveland Pennington Albumin/Globulin [Mass ratio] 0.8 {ratio} Normal [facility] Comment on above: Performed By: #### L IPID, LIVER, BMP, TSH #### [facility] [address] [place] [address] Dr. Cleveland Pennington ALP [Catalytic activity/Vol] 67 U/L Normal 46-116 [facility] Comment on above: Performed By: #### L IPID, LIVER, BMP, TSH #### [facility] [address] [place] [address] Dr. Cleveland Pennington ALT [Catalytic activity/Vol] 50 U/L Normal 16-63 [facility] Comment on above: Performed By: #### L IPID, LIVER, BMP, TSH #### [facility] [address] [place] [address] Dr. Cleveland Pennington AST [Catalytic activity/Vol] 21 U/L Normal 15-37 [facility] Comment on above: Performed By: #### L IPID, LIVER, BMP, TSH #### [facility] [address] [place] [address] Dr. Cleveland Pennington BILI, CONJUGATED 0.1 mg/dL Normal 0.0-0.2 [facility] Comment on above: Performed By: #### L IPID, LIVER, BMP, TSH #### [facility] [address] [address] [address] Cleveland Pennington Bilirubin [Mass/Vol] 0.6 mg/dL Normal 0.2-1.0 [facility] Comment on above: Performed By: #### L IPID, LIVER, BMP, TSH #### [facility] [address] [place] [address] Dr. Cleveland Pennington Globulin (S) [Mass/Vol] 4.1 g/dL Normal [facility] Comment on above: Performed By: #### L IPID, LIVER, BMP, TSH #### [facility] [address] [place] [address] Dr. Cleveland Pennington Protein [Mass/Vol] 7.4 g/dL Normal 6.1-8.2 [facility] Comment on above: Performed By: #### L IPID, LIVER, BMP, TSH #### [facility] [address] [address] [address] Cleveland Pennington MICROALBUMIN, RAND URon 04-2 mALB 2.3 mg/L Normal <=30.0 [facility] Comment on above: Performed By: #### M ALBR #### [facility] [address] [address] [address] Cleveland Pennington PROF CHEM 8 (BAS METB)on Anion gap [Moles/Vol] 9.6 mmol/L Normal [facility] Comment on above: Performed By: #### L IPID, LIVER, BMP, TSH #### [facility] [address] [place] [address] Dr. Cleveland Pennington Calcium [Mass/Vol] 8.7 mg/dL Normal 8.5-10.1 [facility] Comment on above: Performed By: #### L IPID, LIVER, BMP, TSH #### [facility] [address] [address] [address] Cleveland Pennington Chloride [Moles/Vol] 100 mmol/L Normal 98-107 [facility] Comment on above: Performed By: #### L IPID, LIVER, BMP, TSH #### [facility] [address] [address] [address] Cleveland Pennington CO2 [Moles/Vol] 27.6 mmol/L Normal 21.0-32.0 [facility] Comment on above: Performed By: #### L IPID, LIVER, BMP, TSH #### [facility] [address] [address] [address] Cleveland Pennington Creatinine [Mass/Vol] 0.94 mg/dL Normal 0.70-1.30 [facility] Comment on above: Performed By: #### L IPID, LIVER, BMP, TSH #### [facility] [address] [address] [address] Cleveland Pennington EGFR-AF BENINESE >60 Normal >=60 [facility] Comment on above: Performed By: #### L IPID, LIVER, BMP, TSH #### [facility] [address] [address] [address] Cleveland Pennington EGFR-NON AF BENINESE >60 Normal >=60 [facility] Comment on above: Performed By: #### L IPID, LIVER, BMP, TSH #### [facility] [address] [address] [address] Cleveland Pennington Glucose [Mass/Vol] 295 mg/dL Critically high 74-106 T [facility] Comment on above: Performed By: #### L IPID, LIVER, BMP, TSH #### [facility] [address] [place] [address] Dr. Cleveland Pennington Potassium [Moles/Vol] 4.2 mmol/L Normal 3.5-5.1 [facility] Comment on above: Performed By: #### L IPID, LIVER, BMP, TSH #### [facility] [address] [place] [address] Dr. Cleveland Pennington Sodium [Moles/Vol] 133 mmol/L Critically low 136-145 [facility] Comment on above: Performed By: #### L IPID, LIVER, BMP, TSH #### [facility] [address] [place] [address] Dr. Cleveland Pennington Urea nitrogen [Mass/Vol] 14.0 mg/dL Normal 7.0-18.0 [facility] Comment on above: Performed By: #### L IPID, LIVER, BMP, TSH #### [facility] [address] [place] [address] Dr. Cleveland Pennington Urea nitrogen/Creatinine [Mass ratio] 14.9 mg/mg Normal [facility] Comment on above: Performed By: #### L IPID, LIVER, BMP, TSH #### [facility] [address] [place] [address] Dr. Cleveland Pennington TSHon 02-07-2022 TSH 2.757 uIU/mL Normal 0.470-4.680 [facility] Comment on above: Performed By: #### L IPID, LIVER, BMP, TSH #### [facility] [address] [address] [address] Cleveland Pennington TSH RANGE SEE BELOW Normal [facility] Comment on above: Result Comment: <0.3 4 UIU/ml HYPERTHYROID 0.34-5.60 UIU/ml EUTHYROID >5.60 UIU/ml HYPOTHYROID Performed By: #### L IPID, LIVER, BMP, TSH #### [facility] [address] [address] [address] Cleveland Pennington VITAMIN D 25 OHon 02-07-2022 VIT D 25-OH 28.6 ng/mL Normal [facility] Comment on above: Performed By: #### P SASC, VITAD #### [facility] [address] [place] [address] Dr. Cleveland Pennington VIT D RANGES SEE BELOW Normal [facility] Comment on above: Result Comment: <20 ng/mL Vit D deficient 20 - <30 ng/mL Vit D insufficient 30 - 100 ng/mL Vit D sufficient >100 ng/mL Potential Toxicity Performed By: #### P SASC, VITAD #### [facility] [address] [address] [address] Cleveland Pennington Vital Signs Date Time Vital Sign Value Performing Clinician Facility 10-06-2022 14:30-0500 Body height 175.26 cm Amber Mendoza Other [facility] Other 10-06-2022 14:30-0500 Body mass index (BMI) [Ratio] 39.13 kg/m2 Amber Mendoza Other [facility] Other 10-06-2022 14:30-0500 Body temperature 98.1 [degF] Amber Mendoza Other [facility] Other 10-06-2022 14:30-0500 Body weight 120.2 kg Amber Mendoza Other [facility] Other 10-06-2022 14:30-0500 Respiratory rate 18 /min Amberkathy Mendoza Other [facility] Other 10-06-2022 14:30-0500 SaO2% (BldA) [Mass fraction] 94 % Amber Mendoza Other [facility] Other Encounters Encounter Date Encounter Type Care Provider Facility Start: 11-07-2023 End: 11-07-2023 ambulatory PETER OSEGUERA Not Available Start: 10-06-2022 End: 10-06-2022 ambulatory Amber Kelly Other [facility] Other Start: 10-06-2022 Office outpatient ne w 20 minutes Amber Mendoza [facility] Start: 02-09-2022 Encounter for genera l adult medical examination without abnormal findings DR PETER OSEGUERA [facility] Start: 02-07-2022 End: 02-08-[address] PETER OSEGUERA Facility:[facility] Start: 02-07-2022 End: 02-08-2022 Encounter for general adult medical examination without abnormal findings DR PETER OSEGUERA Facility:[facility] Start: 07-19-2021 End: 07-20-[address] PETER OSEGUERA Facility:[facility] Procedures Date Procedure Procedure Detail Performing Clinician Start: 02-07-[address] PETER BLACK Comment on above: Performed By: #### P [facility] #### [facility] [address] [place] [address] Dr. Cleveland Pennington Payers Date Payer Category Payer [facility] [id number] 1975 Unknown [id number] 1975 Unknown [id number] 1975 Unknown [id number] 1957 Unknown [id number] Social History Date Type Detail Facility Sex Assigned At [facility] Other Evaluation note 10-06-2022 Note Date & Type Note Facility 10-06-2022 Evaluation note Encounter Date Diagnosis Assessment Notes Sep, Contact with and (suspected) exposure to other viral communicable diseases (ICD-10 - Z20.828) Sep, Bronchitis (ICD-10 - J40) Bronchitis is inflammation of openings of lungs. It is not caused from bacteria. Antibiotics are not needed to treat this illness. Take medications as directed. Rest and increase fluid intake. Take meds with food to prevent stomach upset. Use inhaler as needed for SOB. Blood sugars may increase due to steroid treatment so eat lower amount of carbs. Follow up with primary care provider if symptoms do not improve with treatment plan, although it may take a few weeks for the cough to go away. [facility] Other Clinical Note 03-29-2022 Note Date & Type Note Facility 03-29-2022 Note Patient Education Ma terials Follows: Hypertension, Adult Hypertension is another name for high blood pressure. High blood pressure forces your heart to work harder to pump blood. This can cause problems over time. There are two numbers in a blood pressure reading. There is a top number (systolic) over a bottom number (diastolic). It is best to have a blood pressure that is below 120/80. Healthy choices can help lower your blood pressure, or you may need medicine to help lower it. What are the causes? The cause of this condition is not known. Some conditions may be related to high blood pressure. What increases the risk? ? Smoking. ? Having type 2 diabetes mellitus, high cholesterol, or both. ? Not getting enough exercise or physical activity. ? Being overweight. ? Having too much fat, sugar, calories, or salt (sodium) in your diet. ? Drinking too much alcohol. ? Having long-term (chronic) kidney disease. ? Having a family history of high blood pressure. ? Age. Risk increases with age. ? Race. You may be at higher risk if you are . ? Gender. Men are at higher risk than women before age 45. After age 65, women are at higher risk than men. ? Having obstructive sleep apnea. ? Stress. What are the signs or symptoms? ? High blood pressure may not cause symptoms. Very high blood pressure (hypertensive crisis) may cause: ? Headache. ? Feelings of worry or nervousness (anxiety). ? Shortness of breath. ? Nosebleed. ? A feeling of being sick to your stomach (nausea). ? Throwing up (vomiting). ? Changes in how you see. ? Very bad chest pain. ? Seizures. How is this treated? ? This condition is treated by making healthy lifestyle changes, such as: ? Eating healthy foods. ? Exercising more. ? Drinking less alcohol. ? Your health care provider may prescribe medicine if lifestyle changes are not enough to get your blood pressure under control, and if: ? Your top number is above 130. ? Your bottom number is above 80. ? Your personal target blood pressure may vary. Follow these instructions at home: Eating and drinking ? If told, follow the DASH eating plan. To follow this plan: ? Fill one half of your plate at each meal with fruits and vegetables. ? Fill one fourth of your plate at each meal with whole grains. Whole grains include whole-wheat pasta, brown rice, and whole-grain bread. ? Eat or drink low-fat dairy products, such as skim milk or low-fat yogurt. ? Fill one fourth of your plate at each meal with low-fat (lean) proteins. Low-fat proteins include fish, chicken without skin, eggs, beans, and tofu. ? Avoid fatty meat, cured and processed meat, or chicken with skin. ? Avoid pre-made or processed food. ? Eat less than 1,500 mg of salt each day. ? Do not drink alcohol if: ? Your doctor tells you not to drink. ? You are , may be , or are planning to become . ? If you drink alcohol: ? Limit how much you use to: ? 0?1 drink a day for women. ? 0?2 drinks a day for men. ? Be aware of how much alcohol is in your drink. In the [place] one drink equals one 12 oz bottle of beer (355 mL), one 5 oz glass of wine (148 mL), or one 1? oz glass of hard liquor (44 mL). Lifestyle ? Work with your doctor to stay at a healthy weight or to lose weight. Ask your doctor what the best weight is for you. ? Get at least 30 minutes of exercise most days of the week. This may include walking, swimming, or biking. ? Get at least 30 minutes of exercise that strengthens your muscles (resistance exercise) at least 3 days a week. This may include lifting weights or doing Pilates. ? Do not use any products that contain nicotine or tobacco, such as cigarettes, e-cigarettes, and chewing tobacco. If you need help quitting, ask your doctor. ? Check your blood pressure at home as told by your doctor. ? Keep all follow-up visits as told by your doctor. This is important. Medicines ? Take [id number] and prescription medicines only as told by your doctor. Follow directions carefully. ? Do not skip doses of blood pressure medicine. The medicine does not work as well if you skip doses. Skipping doses also puts you at risk for problems. ? Ask your doctor about side effects or reactions to medicines that you should watch for. Contact a doctor if you: ? Think you are having a reaction to the medicine you are taking. ? Have headaches that keep coming back (recurring). ? Feel dizzy. ? Have swelling in your ankles. ? Have trouble with your vision. Get help right away if you: ? Get a very bad headache. ? Start to feel mixed up (confused). ? Feel weak or numb. ? Feel faint. ? Have very bad pain in your: ? Chest. ? Belly (abdomen). ? Throw up more than once. ? Have trouble breathing. Summary ? Hypertension is another name for high blood pressure. ? High blood pressure forces your h (more content not included)... [facility] Clinical Note 07-20-2021 Note Date & Type Note Facility 07-20-2021 Note PROCEDURE: XR SHOULD ER RT 2V or > HISTORY: Pain of right shoulder joint , decreased range of motion, no known injury COMPARISON: None. FINDINGS: BONES:No fracture, dislocation, bone lesion. Mild lateral downsloping of the acromion process. SOFT TISSUES:Wall calcification adjacent the rotator cuff insertion into the humeral head. EFFUSION:None visible. OTHER: Negative. IMPRESSION: 1. No acute bone abnormality. 2. Suspect small calcification within the superior rotator cuff near its humeral head insertion; calcific tendinitis versus sequela of remote injury. Electronically authenticated by: BERNARDINO DEAN Date: 2021-07-20 06:09 [facility] History general Narrative - Reported Note Date & Type Note Facility History general Narrative - Reported Type Medical History Diabetes Type 2 Medical History Asthma Surgical History Gallbladder removal 2001 [facility] Other Summary Purpose Family History No Family History Records FoundNo Family History Records FoundNo Family History Records Found Advance Directives No Advanced Directives Records FoundNo Advanced Directives Records FoundNo Advanced Directives Records Found Additional Source Comments (unrecognized sect ion and content) No Status Records FoundNo Status Records FoundNo Status Records Found INFORMATION SOURCE (unrecogn ized section and content) DATE CREATED AUTHOR 02/12/2022 [facility] DATE CREATED AUTHOR AUTHOR'S ORGANIZ ATION 04/04/2022 [facility] DATE CREATED AUTHOR AUTHOR'S ORGANIZ ATION 11/08/2023 [facility] EPIC REASON FOR VISIT (unrecogniz ed section and content) COUGESTIO COUGH FEVER B/A FOR RECORDS PERTAINING TO PATIENTS WHO ARE OR HAVE BEEN ENROLLED IN A CHEMICAL DEPENDENCY/SUBSTANCEABUSE PROGRAM, SOME INFORMATION MAY BE OMITTED. This clinical summary was aggregated from multiple sources. Caution should be exercised in using it in the provision of clinical care. This summary normalizes information from multiple sources, and as a consequence, information in this document may materially change the coding, format and clinical context of patient data. In addition, data may be omitted in some cases. CLINICAL DECISIONS SHOULD BE BASED ON THE PRIMARY CLINICAL RECORDS. [employer] provides no warranty or guarantee of the accuracy or completeness of information in this document.
== END 2023-11-20 20:59 | disposition home or self-care (01) ==
LOC: SLEEP 20:59
PROVIDERS: PCP Family Medicine; Visit Provider Family Medicine
DX: G47.33 Obstructive sleep apnea (adult) (pediatric) (principal)
CPT/HCPCS: 95811

== ENCOUNTER 2024-02-23 10:09 | Outpatient (OUT) | payer BC, SELFPAY ==
[2024-02-23 12:14] LABS: Estimated Average Glucose 143 mg/dL; Glycohemoglobin A1C 6.6 % (4.5-6.2)
[2024-02-23 14:37] LABS: Microalbumin Urine Random <1.3 mg/dL (<=30.0)
== END 2024-02-23 10:10 | disposition home or self-care (01) ==
LOC: LAB 10:10
PROVIDERS: PCP Family Medicine; Visit Provider Family Medicine
DX: E11.65 Type 2 diabetes mellitus with hyperglycemia (principal)
CPT/HCPCS: 36415; 82043; 83036

== ENCOUNTER 2024-08-19 10:15 | Outpatient (OUT) | payer BC, SELFPAY ==
[2024-08-19 10:37] LABS: Basophils Absolute Auto 0.1 10^3/uL (0.0-0.1); Basophils Percent Auto 1.1 % (0.2-2.0); Eosinophils Absolute Auto 0.1 10^3/uL (0.0-0.7); Eosinophils Percent Auto 0.7 % (0.9-7.0); Hematocrit 40.2 % (42.0-54.0); Hemoglobin 12.6 g/dL (14.0-18.0); Immature Granulocytes Abs Auto 0.05 10^3/uL (0.00-0.03); Immature Granulocytes Pct Auto 0.7 % (0.0-0.5); Lymphocytes Absolute Auto 2.1 10^3/uL (1.2-3.8); Mean Corpuscular HGB Conc 31.3 g/dL (29.9-35.2); Mean Corpuscular Hemoglobin 20.6 pg (25.9-34.0); Mean Corpuscular Volume 65.6 fL (80.0-94.0); Mean Platelet Volume 8.7 fL (9.5-13.5); Monocytes Absolute Auto 0.5 10^3/uL (0.3-0.8); Monocytes Percent Auto 7.1 % (1.7-12.0); Neutrophils Absolute Auto 4.8 10^3/uL (1.4-6.5); Neutrophils Percent Auto 62.4 % (43.0-75.0); Platelet Count 253 10^3/uL (150-450); Red Blood Count 6.13 10^6/uL (4.70-6.10); White Blood Count 7.6 10^3/uL (4.0-11.0)
[2024-08-19 11:59] LABS: Alanine Aminotransferase 27 U/L (16-63); Albumin Globulin Ratio 0.9; Albumin Level 3.5 g/dL (3.4-5.0); Alkaline Phosphatase 53 U/L (46-116); Aspartate Amino Transferase 17 U/L (15-37); BUN Creatinine Ratio 18.1; Bilirubin Direct 0.1 mg/dL (0.0-0.2); Bilirubin Total 0.7 mg/dL (0.2-1.0); Calcium 9.5 mg/dL (8.5-10.1); Carbon Dioxide 26.4 mmol/L (21.0-32.0); Chloride 102 mmol/L (98-107); Chol HDL Ratio 4.9; Cholesterol 220 mg/dL (<=200); Estimated GFR (African America >60 (>=60 mL/min/1.73m^2); Estimated GFR (Non-African Ame >60 (>=60 mL/min/1.73m^2); Globulin 4.1 g/dL; Glucose 126 mg/dL (74-106); HDL Cholesterol 45 mg/dL (40-60); Potassium 4.4 mmol/L (3.5-5.1); Sodium 140 mmol/L (136-145); Thyroid Stimulating Hormone 1.682 uIU/mL (0.358-3.740); Total Protein 7.6 g/dL (6.4-8.2); Triglycerides 131 mg/dL (<=150); VLDL CHOLESTEROL 26.2 mg/dL
[2024-08-19 12:04] LABS: Prostate Specific Antigen Scrn 0.47 ng/mL (<=4.00)
[2024-08-21 02:38] LABS: Estimated Average Glucose 148 mg/dL; Glycohemoglobin A1C 6.8 % (4.5-6.2)
== END 2024-08-19 10:16 | disposition home or self-care (01) ==
LOC: LAB 10:17
PROVIDERS: PCP Family Medicine; Visit Provider Family Medicine
DX: Z00.00 Encounter for general adult medical examination without abnormal findings (principal)
CPT/HCPCS: 36415; 80048; 80061; 80076; 83036; 84443; 85025; G0103

== ENCOUNTER 2024-09-09 16:34 | Emergency (ER) | payer BC, SELFPAY ==
[2024-09-09 16:38] VITALS: BP 149/91; PULSE 68; TEMP 36.8; O2SAT 99; BMI 36.9
[2024-09-09 16:39] VITALS: BP 149/91; O2SAT 98
--- OUTSIDE RECORDS SUMMARY | 2024-09-09 16:44 | XMS_ITS | CCD ---
Author Organization [facility] Care Team Providers Care Sewing Line Baler Name Role Phone DR ELLIS OSEGUERA Admitting Unavailable OUMAR, DR ELLIS Wei Attending Unavailable OUMAR, DR ELLIS Wei Primary Care Unavailable OUMAR, DR ELLIS Wei Consulting Unavailable OUMAR, DR ELLIS Wei Admitting Unavailable OUMAR, DR ELLIS Wei Attending Unavailable OUMAR, DR ELLIS Wei Primary Care Unavailable JERMAINE, DR BERNARDINO Bloom Consulting Unavailable OUMAR, DR ELLIS Wei Consulting Unavailable Amber Mendoza Unavailable Ellis Oseguera MD Primary Care Provider Ellis Oseguera MD Unavailable ELLIS OSEGUERA Attending Unavailable ELLIS OSEGUERA Attending Unavailable NIEVES GIRON Attending Unavailable NIEVES GIRON Referring Unavailable NIEVES GIRON Attending Unavailable ELLIS OSEGUERA Attending Unavailable Allergies Allergy Classification Reported Allergen(s) Allergy Type Date of Onset Reaction(s) Facility (4 sources) Iron Drug Allergy 10-31-2023 [facility] Medications Current Medications Medication Drug Class(es) Dates Sig (Normalized) Sig (Original) [id number] 200 actuat albuterol 0.09 mg/actuat metered dose inhaler (1 source) beta2-Adrenergic Agonist Start: 10-06-2022 take 2 puff(s) by inhalation every four hours as needed Albuterol Sulfate HFA 108 (90 Base) MCG/ACT 2 puffs as needed Inhalation every 4 hrs Sep, Active Aspirin (1 source) Platelet Aggregation Inhibitor, Nonsteroidal Anti-inflammatory Drug Baby Aspirin Active atorvastatin 40 mg oral tablet (5 sources) HMG-CoA Reductase Inhibitor take 1 tablet by mouth in the morning atorvastatin (Lipitor) 40 MG tablet Take 40 mg by mouth in the morning. Active azithromycin 250 mg oral tablet (1 source) Macrolide Antimicrobial Start: 10-06-2022 Azithromycin 250 MG 2 tablets on the first day, then 1 tablet daily for 4 days Orally Once a day for 5 day(s) Sep, Active Continuous Blood Gluc Sample Patternmaker (Dexcom G6 auto adjudication specialist) device (4 sources) Continuous Blood Gluc Sample Patternmaker (Dexcom G6 auto adjudication specialist) device Inject 1 Device under the skin if needed Use as instructed Active Continuous Blood Gluc Sensor (Dexcom G6 Sensor) misc (4 sources) Start: 01-15-2024 Continuous Blood Gluc Sensor (Dexcom G6 Sensor) [facility] [place] Indications: Type 2 diabetes mellitus with hyperglycemia, without long-term current use of insulin ([facility]) USE 1 SENSOR DIRECTED 9 each 3 01/15/2024 Active Continuous Blood Gluc Transmit (Dexcom G6 transmitter) misc (4 sources) Start: 10-18-2023 Continuous Blood Gluc Transmit (Dexcom G6 transmitter) [facility] Indications: Type 2 diabetes mellitus with hyperglycemia, without long-term current use of insulin ([facility]) USE 1 TRANSMITTER DIRECTED 1 each 3 10/18/2023 Active dapagliflozin 10 mg oral tablet (1 source) Sodium-Glucose Cotransporter 2 Inhibitor Farxiga 10 MG Oral for 90 Days Active Dexcom G6 Transmitter - (1 source) Dexcom G6 Transmitter - for 90 Days Active glipiZIDE 5 mg oral tablet (5 sources) Sulfonylurea Start: 02-23-2024 take 1 tablet by mouth once daily glipiZIDE (Glucotrol) 5 MG tablet Take 1 tablet (5 mg) by mouth Daily 90 tablet 3 02/23/2024 Active glipiZIDE 10 MG Oral for 90 Days Active meloxicam 15 mg oral tablet (4 sources) Nonsteroidal Anti-inflammatory Drug Start: 07-02-2024 End: 09-30-2024 take 1 tablet by mouth once daily meloxicam (Mobic) 15 MG tablet Indications: Sinus tarsi syndrome of right foot Take 1 tablet (15 mg) by mouth Daily 90 tablet 07/02/2024 09/30/2024 Active 24 hr metFORMIN hydrochloride 500 mg extended release oral tablet (2 sources) Biguanide metFORMIN HCl ER 500 MG Oral for 90 Days Active metFORMIN HCl Ac tive methylPREDNISolone (4 sources) Corticosteroid Start: 05-17-2024 End: 08-19-2024 methylPREDNISolone (Medrol Dospak) 4 MG tablets Indications: Sinus tarsi syndrome of right foot Take as directed on package. 21 tablet 05/17/2024 08/19/2024 Discontinued Start: 05-17-2024 methylPREDNISo lone (Medrol Dospak) 4 MG tablets Indications: Sinus tarsi syndrome of right foot Take as directed on package. 21 tablet 05/17/2024 Active Start: 10-06-2022 methylPREDNISo lone 4 MG as directed Orally Once a day for 6 days Sep, Active 0.25 mg, 0.5 mg dose 1.5 ml semaglutide 1.34 mg/ml pen injector (3 sources) Start: 08-19-2024 semaglutide (O zempic, 0.25 or 0.5 MG/DOSE,) 2 MG/1.5ML solution pen-injector Indications: Type 2 diabetes mellitus with hyperglycemia, without long-term current use of insulin (CMS/HCC) 0.25 mg SC weekly x 4 weeks, then 0.5 mg weekly 1 each 3 08/19/2024 Active Start: 08-19-2024 semaglutide (O zempic, 0.25 or 0.5 MG/DOSE,) 2 MG/1.5ML solution pen-injector Indications: Type 2 diabetes mellitus with hyperglycemia, without long-term current use of insulin (CMS/HCC) 0.25 mg SC weekly x 4 weeks, then 0.5 mg weekly 1 each 3 08/19/2024 Active Start: 08-19-2024 semaglutide (O zempic, 0.25 or 0.5 MG/DOSE,) 2 MG/1.5ML solution pen-injector Indications: Type 2 diabetes mellitus with hyperglycemia, without long-term current use of insulin (CMS/HCC) 0.25 mg SC weekly x 4 weeks, then 0.5 mg weekly 1 each 3 08/19/2024 Active tamsulosin hydrochloride 0.4 mg oral capsule (3 sources) alpha-Adrenergic Micah Start: 11-28-2023 End: 08-19-2024 take 1 capsule by mouth once daily tamsulosin (Flomax) 0.4 MG 24 hr capsule Take 0.4 mg by mouth Daily 11/28/2023 08/19/2024 Discontinued Problems Active Problems Problem Classification Problem Date Documented Date Episodic/Chronic Chronic obstructive pulmonary disease and bronchiectasis (1 source) Bronchitis, not specified as acute or chronic Episodic Deficiency and other anemia (4 sources) Beta thalassemia trait; Translations: [Thalassemia minor] Onset: 11-07-2023 11-07-2023 Chronic Diabetes mellitus with complications (6 sources) Hyperglycemia due to type 2 diabetes mellitus; Translations: [Type 2 diabetes mellitus with hyperglycemia] Onset: 11-07-2023 11-07-2023 Chronic Disorders of lipid metabolism (4 sources) Dyslipidemia; Translations: [Hyperlipidemia, unspecified] Onset: 11-07-2023 11-07-2023 Chronic Disorders usually diagnosed in infancy, childhood, or adolescence (4 sources) Attention deficit hyperactivity disorder, predominantly inattentive type; Translations: [Other specified behavioral and emotional disorders with onset usually occurring in childhood and adolescence] Onset: 11-07-2023 11-07-2023 Chronic Hyperplasia of prostate (4 sources) Urinary frequency due to benign prostatic hypertrophy; Translations: [Benign prostatic hyperplasia with lower urinary tract symptoms] Onset: 11-07-2023 11-07-2023 Chronic Immunizations and screening for infectious disease (2 sources) Contact with and (suspected) exposure to other viral communicable diseases; Translations: [Contact with and (suspected) exposure to other viral communicable diseases] Episodic Mood disorders (4 sources) Recurrent major depression in full remission; Translations: [Major depressive disorder, recurrent, in full remission] Onset: 02-23-2024 02-23-2024 Chronic Nutritional deficiencies (5 sources) Vitamin D deficiency, unspecified; Translations: [Vitamin D deficiency] Onset: 02-09-2022 11-07-2023 Chronic Other nutritional; endocrine; and metabolic disorders (5 sources) Severe obesity; Translations: [Class 2 severe obesity due to excess calories with serious comorbidity and body mass index (BMI) of 37.0 to 37.9 in adult (CMS/[facility])] Onset: 08-19-2024 08-19-2024 Chronic Other screening for suspected conditions (not mental disorders or infectious disease) (1 source) Encounter for screening for malignant neoplasm of prostate; Translations: [ENC SCREEN MALIG NEOPLASM PROSTATE] Onset: 02-09-2022 Episodic Residual codes; unclassified (6 sources) Obstructive sleep apnea syndrome; Translations: [Obstructive sleep apnea (adult) (pediatric)] Onset: 11-07-2023 11-07-2023 Chronic Past or Other Problems Problem Classification Problem Date Documented Da te Episodic/Chronic Anxiety disorders (4 sources) Generalized anxiety disorder; Translations: [Generalized anxiety disorder] Onset: 11-07-2023 Resolved: 02-23-2024 02-23-2024 Chronic Other non-traumatic joint disorders (4 sources) Pain in right shoulder; Translations: [PAIN IN RIGHT SHOULDER] Onset: 07-19-2021 Episodic Results Test Name Value Interpretation Reference Range Facility ALL CBC WITH AUTO DIFFon BASOPHILS ABSOLUTE AUTO 0.1 [facility] Basophils/100 WBC (Bld) 1.1 % 0.2 - 2.0 % [facility] Eosinophils/100 WBC (Bld) 0.7 % Low 0.9 - 7.0 % [facility] Erythrocyte distribution width (RBC) [Ratio] 18 % High 11.0 - 15.0 % [facility] Hematocrit (Bld) [Volume fraction] 40.2 % Low 42.0 - 54.0 % [facility] Hemoglobin (Bld) [Mass/Vol] 12.6 g/dL Low 14.0 - 18.0 g/dL [facility] IMMATURE GRANULOCYTES ABS AUTO 0.05 High [facility] Immature granulocytes/100 WBC (Bld) 0.7 % High 0.0 - 0.5 % [facility] Interpretation and review of laboratory results Abnormal [facility] LYMPHOCYTES ABSOLUTE AUTO 2.1 [facility] Lymphocytes/100 WBC (Bld) 28 % 20.5 - 60.0 % [facility] MCH (RBC) [Entitic mass] 20.6 pg Low 25.9 - 34.0 pg [facility] MCHC (RBC) [Mass/Vol] 31.3 g/dL 29.9 - 35.2 g/dL [facility] MCV (RBC) [Entitic vol] 65.6 fL Low 80.0 - 94.0 fL [facility] MONOCYTES ABSOLUTE AUTO 0.5 [facility] Monocytes/100 WBC (Bld) 7.1 % 1.7 - 12.0 % [facility] NEUTROPHILS ABSOLUTE AUTO 4.8 [facility] Neutrophils/100 WBC (Bld) 62.4 % 43.0 - 75.0 % [facility] Platelet mean volume (Bld) [Entitic vol] 8.7 fL Low 9.5 - 13.5 fL [facility] # 0.1 [facility] PLT 253 [facility] RBC 6[facility]13 High [facility] WBC 7.6 [facility] Quick Fluon 10-06-2022 FLUAV Ab CF (S) [Titer] Negative Gnip Other FLUBV Ab CF (S) [Titer] Negative Gnip Other Coding Summaryon 04-04-2022 Coding Summary HTMLBase 64 BvgzgaqtXTy7iJv+PGh lYWQ+EP4WYJTsL31siH CtnU7BO8uSZM6SMZXDM PZNUP3JLM1ywTR6XWck M2OnhfYa LlvcfQXvNM68XPm0OAZ 0zFaeEGnvqB4ibWOrA8 q7TsOoLR02cU76VBmxS NEcFaF8UrEppftyaNUy O2vmCfJggAOvBrh+PHR hYmxlIHdpZHRoPScxMD EeIhOztMwrEL7aJa1jS GVyLWNvbGxhcHNlOiBj d6edFEKgWLvaNM8xdXd cB8ChdVK8PKZtz5l9Xq 48dHI+NRTaZBU9dWqdQ Tcns813XoEyo8shAVR4 yJFjTBkpYMT4G51mj7Z 2RFJdAXYbRAP6mXA8dI 1gvKgmdhpsM9AtiNMrJ qN0TFK9iNBdeX8axWob zftvsW4kQjl+E05STK6 WEOFJMB2VFdt0P2VoTw wvdHI+RN94SIKgFR53k IUszRLsp4rikTy6RaCz RJKsSIY5wEswIWntk6M iAKUbR71otSEcw6M5EQ BtlQgpkXLyWaPddUV8i D6iVPgyphssx3qxtjur Yxiuu1mnhp95eO44Y92 jWVwsJLJvMPV4QYFxHG VlgIsmyt6hgN5pFm5+I Kpya0qgz4fgzZb2FiWv EGNaioJqzGlmRWS1b2V zRh76J0DsiZqof1SpQr z6ol94vKHzj7C0aOS3E ZxgEAUkeR8cQAsyKwH7 ODFcJzIyaC64oICzEVl iKz8vsXkuaLayEX8qYH WdaopvZVNkwB5rHOWwb IHoaQqvQP5iNCUeiikz a954OaJqPDK4BCQzjIC mT5BupO4xZxDbSNTePC PsH8EuiTWaOIkqK496I QkhVqE2BCMzznMvF7Pr BGSgxYolVtY1j9Q5Gx9 Pj6GzkpnvNPO9XRonLA D2UhRqEsPmMoC8W6BsP pb6AKYsqIypVD4yL8Si QZNwkcsmmhyigFZ9GSB hZUIiiS12eGKzHSboJa 7jq7E5m021ATXsLOLwi L45Ls5rbOrtSUJapKQU cY9shtozh4soneqeVxA dILXuNEo2YWz9LOZicR sbZbBpNXD7GqZ6MRS3n EXyfW4koVcbywkatW7q Oyc+P77hzK5bFLR8SZR 5tkprPJEhlaJiXY86BS 16M2OvDzkbsRIraQS+P UVbwpXedTphYQ0lJyKj z7unw8SmFIkqX4ZqEDH zSJzzTof0SCBzHAZ2aA N9cX0sMODkKWgte9H6v OO1A4BtbxGrkt1gh3ue GYOvHKijU87chIYtr3K 8VQPsfIU0ZNJosWvoQw AcbX15Cfs+PGNvbGdyb 4CyIljpx8hft0rhdZw7 IjMwJSIgdmFsaWduPSJ 8c3FdUg03J21pZDtkMX RoPSIxNSUiIHZhbGlnb m4gdP6tMn5+PGNvbCB3 rWK9lB1bINJnUsR5RWv hA744MsGqeAPyPescp1 itm6rloGi2LuYpSVUkf dFohJtbTBN3k0PyFu69 I64hUDnmGRJdDLPkMYS kNKYaxCbczm9vkL6sHl 8+HQ8sz7mdlp84yB10r HI+NALsGCN1uMqsMXds JIWwfK1fJAcxFyY0OBW fOiFshE38cGHfNUicKf 3mfLrixFloGL3dESOap ugaa909SoNun3teSXGg vQOaHXgvKQX6F27ut3N 0WWRzQEFeLJT3tUO2sN 1hbGlnbjogbGVmdDsgd kCefSotLSjnEEvcK121 IHRvcDsnPlBhdGllbnQ fDvMhWRd5T7NoTby9PG MsjTajUC3rcJMvSJjaX a2trRqlmDfwAP1uFNTh qlvld093QtYsg4tcYOU zwKRyBMkfUHD2X43id3 R3TTTeMKLhQME3jXB1b U3vcSyjxlccyFUkfVki gvWxdFclFNyeGKqoP32 6IHRvcDsnPkJpcnRoIE SxwPX7FS26TW36cQImz 2X9rLE0O1XpNUNrcwba crlnkHN7FINtXHGxuD7 0Md4ksJmbJh5aPKJzCN D3ILSwcFJaG3RmxP9gZ uYtJRWxEODnM1ZjwPPc VOecK762XZlkNoN8NAP ahzSiF4HgGDZqfBdzOa V9i7L8Jp8XI4Y5JS36Y Y38pBVcu4G3fZV4F4Cf UEQcovpewftweBY4DKD fFIRwoD08Ge6rpHgxVt 5eRXBfUST4EWAnaNXfJ 8HezI5fPsPjNSPwNFWk R6VvqEAhBVttB795FNq eKpM9XAUqnlVzR3SxCW RypDbeRdB5x2D0Ch7EC Fq5VW71ZC96xWDzt6A4 kDW3W1WmBHAbqcxicyp ynME0JQKnVMJspD40Hi 3ivOytXx1xQAImOQG0I VItgBBkR3RmvP6pKrHq CHDyBSVjP4ZnlXPgTBv uN563RYhfQmR2QHYqgg KlT3KxQEMcnAwsPgF5v 2O6Fi9JTJLuGL59GST6 zPU7BP70DZ33Z2HdZhu vdGFibGU+PHRhYmxlIH dpZHRoPScxMDAlJyBzd DweNQ9vNm4hVQImRYOl wKwmmRLtBcIcy8urZHE cPPvfFS1miGblK2IszM B3RARne2r7Lt09N93pJ 3JvdXA+YLTwzVH4cOW2 mA8xCqNdRrH5UJuuP26 3MwRisOSgAcnam3crt3 yugXp6FyN3SEPbscWus LdbVOF7y1QxGu80F17b IHdpZHRoPSIxNSUiIHZ neTuawk0wgX7xPp7+PG JpuIB8mEP0wA3aKwSuO vE0DEqgZ962QlEoqWLc Vzyrb5cqz2fryVr9GwU wJSCgtbVnlPchEFA6k3 NrZr79N4WnlIenx9CiQ ke8ca06oMYww0B2dJX8 K0WdRUIqgfowvLVtiKq iMH3dBRUerwyzXCJziW 8rBKKlN5f7NsHjSsF1Z ZwmC2CvduO3QWBxfCUp YTufUFD2U56lv0P1VRB rZSTqCFT4tNC0oZ9hqD lnbjogbGVmdDsgdmVyd VatZMdcWZzxG832BVNc pNbuCUVisJ5dARFkrOE tdVbmEC3kIDZymzmnZi RXSVNTLCBNQVRUSEVXI U5FP2oMDOp6D1DgHdg8 OGLwiMuzYJ4mtJXsURi eOr1dmNpfdBkvHW8qGV FgvdepYYKtxD0bGDZyv GMblFkwPV5hXCTrfbou m119QhTaSDI0IIRtwOC uT9GpcF2dNjXvZRLyAU GjA0WiiREeBQvvY327T JifItN8BXRywxPwE7Ld PYTlzKhtNxP7c9S9Wz6 tJB2dHx8mASl1MR72RB 93tEGly0R8iMG4H0AvI IMufuqhvaptdDM2SDDv CQKwcM09cXGkKXayCk8 oc7W4o150FGMaNSGqcQ 16Tr1osSnaLAUrmWVUo G2uszykw4jpwsnlTfWx CEMjBMy4XVu9QHKfeHl uHpHfRXQ1HrZ9JCH1qA LxfM0icQnsbuyukL0sK yc+FFUgWKBnxxO3I9Ca Cwg9ZGFpyRfvXU5adUO yPXcpRs2kfFjvuOlnRS 9nFTDxmhmbKKAwoK6jS HNrsHRwnBfbGU3sEBQc ffscq070SnYbATF4LAV bhJYsI9LudZ7fZtKkRZ IaIPJtY8RpbDHuVRvaW 174XQazAuJ1BBGmnhUs X1RtONMvePtpTsK1y1B 7Wk0SJKpJCO93DE80lD Ncb9N7fJZ7G3JbTOGjh vurvqgovBD5UWCqPDXd uG50eSQyWZzhJd2gw7Z 9w715GYYdWSDbtB80Ra 2jaEysXZDyvZRVhW3ai ptwz1evjghqZoOiBBPg NFs5QTi1YFVhxIztXxC kQEM5GkS3CNR0yQPdoH 3gzKcdooxzpJ4uKhf+T 1G0J0MsUqbiwEJ+PC90 MTRcSG03jLSawYNmf3s xuXa9AxNuREBrLCI2pG qfDMwkp2RnJIUeO21hy NFzd4P5QMXptHdcnFIp CnXrqRX8kT1qOHvnojz tp5ptghfoHidyu2kctk 76kM59R40cQAbgZDCiS FYxMMVhDQAhnMfhdi2c qH8fXn6+VNBslZL3pEB 2bX2gWcQpOvK2FAgeF8 60MnBalFGnPjzdt5ljp 3pjyLd3HqPpDNVrivHx dLpkAQP4f9NbGs36Y73 sIHdpZHRoPSIyMCUiIH OadRarou2buJ1oIx8+P W5no8mzqa61rC02yIL+ XNHvFKR5yBplIBekWMP yvA3uREueWzM8XFRnVb SojN58yMYsIRcePh0ai AaegMscWM7aRPTgcikp d457KiGqk0uhMINcfSK rZIwvVTK5R54rw6F9QB MmFYWrEJU4nUZ3uT5ab GlnbjogbGVmdDsgdmVy sEctRNmgANzzI135TUS kwZjoKiJnyTHuJ2pbke BDVC8tHnqslHA+PHRkI NY7uPbfRUjwSCCtpV3s MYJhN2q8MeYtQlI2YPn yY0YkplX6TNQdfOQmWY PlcSOLnR9bvjzuo6zym xtdXpQxVGCaUTc8OXf6 QNWjvXfxUdQaEIB6KiO 9QCG9gBVlhE9seXrpig owuU8sJdj+RklOOjwvd GQ+XUGbHGS7dMuuLGfz VULebL1dAOOlF8f5MmD aTzH6DThzI1NrpuN9LZ OomKJpIIOlwAUPxE8ef ouuf1kwkwdnRjJrAOKe AKy5ACn0ZHNknPswPjH pZHX2VdK2FKE7vEWhgH 1gqMweocnucM1aNif+T VJOOjwvdGQ+PHRkIHN0 xHwsPPtsKJAjeO3mHRS vT3l2EjBrOdW3NWcmZ8 DxogN6LEEvdIZqACPaa JVLdW6ufvaxs3rnouyf ZvQgHMTqEJh4IFu1PFR lrFqtNaBvUKE9WrY6NL J8aDRldH8yiEtujegml G9wOyc+XWI2WPP8SV24 RD60C7RrEijooOAwoPY +PHRhYmxlIHdpZHRoPS grJSEoWlBziCxxIO7iM n0jOBGlWRJklIstdQJx OiB (more content not included)... Normal [facility] ED Clinical Summaryon 2021 ED Clinical Summary [facility] ? Urgent Care [address] [place], [place] [id number] Clinical Summary PERSON INFORMATION Name: KRISTI GOMEZ Age: 46 Years Sex: MALE : 1975 MRN: Acct#: Visit Reason: Hip pain; RIGHT HIP PAIN Arrival: 03/29/2022 15:33:12 Discharge: 03/29/2022 17:49:00 LOS: 000 02:16 Check In: 03/29/2022 15:33:12 Checkout: 03/29/2022 17:49:00 Address: [address] [place] [id number] PCP: ELLIS OSEGUERA PROVIDER INFORMATION Provider Role Assigned Unassigned Reji Gautam PA-C ED PA 03/29/2022 15:43:45 Carrillo Burger CAN CARRIER Nurse 03/29/2022 15:49:57 Tasia Oconnell CAN CARRIER Nurse 03/29/2022 16:59:28 VITALS INFORMATION Vital Sign Triage Latest Temperature Tympanic Temperature Temporal Artery Pulse Rate O2 Sat 96 % 96 % Respiratory Rate Blood Pressure /93 mmHg /93 mmHg MEDICAL INFORMATION Medications Given: Allergy Information: No Known Medication Allergies PHYSICIAN DOCUMENTATION DISCHARGE INFORMATION: Discharge Disposition: Home Discharge Location: Home PATIENT EDUCATION INFORMATION Instructions: Hypertension, Adult, Dagw-vm-Mgpg; Hip Pain; Sciatica, Klsi-uk-Tuxm Follow-Up: With: Address: When: ELLIS OSEGUERA [address] [place], [place] [phone] [employer] [facility] (1) Within 1 week Comments: Please follow-up [...] baclofen, try not to take any additional ngha-uby-tvbxcxx nonsteroidals while you are on the Medrol Dosepak, and return back to the urgent care center for any worsening symptoms, concerns, or complications. Please have your doctor monitor your blood pressures. DIAGNOSIS: 1:Right sided sciatica; 2:Right hip pain; 3:Elevated blood pressure reading without diagnosis of hypertension Patient Understands: Yes - Patient/family/ocular care aide verbalizes understanding of instructions given Comment: Normal [facility] ED Patient Summaryon 022 ED Patient Summary [facility] ? Urgent Care [address] [place], [place] [id number] PATIENT DISCHARGE INSTRUCTIONS Patient Information Name: KRISTI GOMEZ Age: 46 Years Date of : 1975 Reason For Visit: Hip pain; RIGHT HIP PAIN Arrival Time: 03/29/2022 15:33:12 Primary Care Physician: ELLIS OSEGUERA Attending Physician: Reji Gautam PA-C Comment: Patient Education With: Address: When: ELLIS OSEGUERA [address] [place] [id number] [employer] [facility] (1) Within 1 week Comments: Please follow-up [...] baclofen, try not to take any additional txwg-zjn-rpnjhwq nonsteroidals while you are on the Medrol [...] and chew (more content not included)... Normal [facility] [place] 022 Urgent Care Record [facility] ? Urgent Care [address] [id number] PATIENT DISCHARGE INSTRUCTIONS Patient Information Name: KRISTI GOMEZ Age: 46 Years Date of : 1975 [facility]: [id number] Reason For Visit: Hip pain; RIGHT HIP PAIN Arrival Time: 03/29/2022 15:33:12 Primary Care Physician: ELLIS OSEGUERA Attending Physician: Reji Gautam PA-C Comment: Visit Diagnosis: Diagnoses This Visit Elevated blood pressure reading without diagnosis of hypertension (R03.0) Hip pain (75471263) Right hip pain (M25.551) Right sided sciatica [...] sign any legal documents With: Address: When: ELLIS OSEGUERA [address] [place], [place] [address], [place] [phone] Business (1) Within 1 week Comments: Please [...] baclofen, try not to take any additional yzmz-msr-niyxuco nonsteroidals while you are on the Medrol Dosepak, and return back to the urgent care center for any worsening symptoms, concerns, or complications. Please have your doctor monitor your blood pressures. Medication Information: The exam and treatment you received today in the [facility] were for an urgent problem and are not intended as complete care. It is important for you to follow up with a doctor, nurse practitioner, or physician?s insurance sales assistant for ongoing care. If your symptoms [...] so we can reach you if necessary. [facility] has provided you with a complete list of medications post discharge. Please inform your primary care physician/provider of your visit and for further instruction on these medications. Any specific questions regarding your chronic medications and dosages should be discussed with your primary care physician(s) and/or pharmacist. New Medications [facility], [address] [place], [place] [id number], [phone] baclofen (baclofen 10 mg oral tablet) 1 [...] Mass Index: 37.3 (more content not included)... [facility] XR Femur Righton 03-29-2022 XR Femur Right [...] Crews DO 03/29/22 5:18 pm Technologist: SADA [facility] XR Hip Complete Right w/ Pel vison [...] Ramon Sánchez 03/29/22 5:18 pm Technologist: SADA [facility] CBC AUTO DIFFon 02-07-2022 BASO # 0.1 103/ul Normal 0.0-0.1 [facility] Comment on above: Performed By: #### C BC #### [facility] [address] [address] [address] Cleveland Pennington Basophils/100 WBC (Bld) 0.7 % Normal 0.2-2.0 [facility] Comment on above: Performed By: #### C BC #### [facility] [address] [place] [address] Dr. Cleveland Pennington EO # 0.1 103/ul Normal 0.0-0.7 [facility] Comment on above: Performed By: #### C BC #### [facility] [address] [place] [address] Dr. Cleveland Pennington Eosinophils/100 WBC (Bld) 1.2 % Normal 0.9-7.0 [facility] Comment on above: Performed By: #### C BC #### [facility] [address] [place] [address] Dr. Cleveland Pennington Erythrocyte distribution width (RBC) [Ratio] 19.0 % Critically high 11.0-15.0 [facility] Comment on above: Performed By: #### C BC #### [facility] [address] [place] [address] Dr. Cleveland Pennington Hematocrit (Bld) [Volume fraction] 42.4 % Normal 42.0-54.0 [facility] Comment on above: Performed By: #### C BC #### [facility] [address] [place] [address] Dr. Cleveland Pennington Hemoglobin (Bld) [Mass/Vol] 12.9 g/dL Critically low 14.0-18.0 [facility] Comment on above: Performed By: #### C BC #### [facility] [address] [place] [address] Dr. Cleveland Pennington IG # 0.04 10e3/ul Critically high 0.00-0.03 [facility] Comment on above: Performed By: #### C BC #### [facility] [address] [place] [address] Dr. Cleveland Pennington IG % 0.5 % Normal 0.0-0.5 [facility] Comment on above: Performed By: #### C BC #### [facility] [address] [place] [address] Dr. Cleveland Pennington LYMPH # 2.7 103/ul Normal 1.2-3.8 [facility] Comment on above: Performed By: #### C BC #### [facility] [address] [address] [address] Cleveland Pennington Lymphocytes/100 WBC (Bld) 32.4 % Normal 20.5-60.0 [facility] Comment on above: Performed By: #### C BC #### [facility] [address] [address] [address] Cleveland Pennington MANUAL DIFF REQ NO Normal [facility] Comment on above: Performed By: #### C BC #### [facility] [address] [place] [address] Dr. Cleveland Pennington MCH (RBC) [Entitic mass] 20.3 pg Critically low 25.9-34.0 [facility] Comment on above: Performed By: #### C BC #### [facility] [address] [place] [address] Dr. Cleveland Pennington MCHC (RBC) [Mass/Vol] 30.4 g/dL Normal 29.9-35.2 [facility] Comment on above: Performed By: #### C BC #### [facility] [address] [place] [address] Dr. Cleveland Pennington MCV (RBC) [Entitic vol] 66.8 fL Critically low 80.0-94.0 [facility] Comment on above: Performed By: #### C BC #### [facility] [address] [place] [address] Dr. Cleveland Pennington MONO # 0.7 103/ul Normal 0.3-0.8 [facility] Comment on above: Performed By: #### C BC #### [facility] [address] [place] [address] Dr. Cleveland Pennington Monocytes/100 WBC (Bld) 8.4 % Normal 1.7-12.0 The [facility] Comment on above: Performed By: #### C BC #### [facility] [address] [place] [address] Dr. Cleveland Pennington NEUT # 4.7 103/ul Normal 1.4-6.5 [facility] Comment on above: Performed By: #### C BC #### [facility] [address] [address] [address] Cleveland Pennington Neutrophils/100 WBC (Bld) 56.8 % Normal 43.0-75.0 [facility] Comment on above: Performed By: #### C BC #### [facility] [address] [address] [address] Cleveland Pennington Platelet mean volume (Bld) [Entitic vol] 9.2 fL Critically low 9.5-13.5 [facility] Comment on above: Performed By: #### C BC #### [facility] [address] [address] [address] Cleveland Pennington PLT 252 103/ul Normal 150-450 [facility] Comment on above: Performed By: #### C BC #### [facility] [address] [place] [address] Dr. Cleveland Pennington RBC 6.35 106/ul Critically high 4.70-6.10 [facility] Comment on above: Performed By: #### C BC #### [facility] [address] [address] [address] Cleveland Pennington WBC 8.3 103/ul Normal 4.0-11.0 [facility] Comment on above: Performed By: #### C BC #### [facility] [address] [place] [address] Dr. Cleveland Pennington GLYCOHEMOGLOBIN A1Con 2021 ADA RECOMMENDATION SEE BELOW Normal [facility] Comment on above: Result Comment: ADA RECOMMENDED LIMIT 4.0 - 6.0 ADA THERAPEUTIC TARGET < 7.0 ACTION SUGGESTED > 7.0 Performed By: #### A 1C #### [facility] [address] [address] [address] Cleveland Pennington Glucose [Mass/Vol] 263 mg/dL Normal [facility] Comment on above: Performed By: #### A 1C #### [facility] [address] [place] [address] Dr. Cleveland Pennington HbA1c (Bld) [Mass fraction] 10.8 % Critically high 4.5-6.2 [facility] Comment on above: Performed By: #### A 1C #### [facility] [address] [address] [address] Cleveland Pennington LIPID PROFILEon 02-07-2022 CHOL-HDL RATIO NORM SEE BELOW Normal [facility] Comment on above: Result Comment: 3.3 - 4.4 LOW RISK 4.4 - 7.1 AVERAGE RISK 7.1 - 11.0 MODERATE RISK >11.0 HIGH RISK Performed By: #### L IPID, LIVER, BMP, TSH #### [facility] [address] [address] [address] Cleveland Pennington Cholesterol [Mass/Vol] 179 mg/dL Normal <=200 [facility] Comment on above: Performed By: #### L IPID, LIVER, BMP, TSH #### [facility] [address] [address] [address] Cleveland Pennington Cholesterol in HDL [Mass/Vol] 39 mg/dL Critically low 40-60 [facility] Comment on above: Performed By: #### L IPID, LIVER, BMP, TSH #### [facility] [address] [address] [address] Cleveland Pennington Cholesterol in LDL [Mass/Vol] 91.0 mg/dL Normal [facility] Comment on above: Performed By: #### L IPID, LIVER, BMP, TSH #### [facility] [address] [address] [address] Cleveland Pennington Cholesterol.total/Ch olesterol in HDL [Mass ratio] 4.6 {ratio} Normal [facility] Comment on above: Performed By: #### L IPID, LIVER, BMP, TSH #### [facility] [address] [address] [address] Cleveland Pennington HDL NORMAL > or = 60 mg/dl - LOW CARDIOVASCULAR RISK <40 mg/dl - HIGH CARDIOVASCULAR RISK Normal [facility] Comment on above: Performed By: #### L IPID, LIVER, BMP, TSH #### [facility] [address] [address] [address] Cleveland Pennington LDL CALC NORMAL SEE BELOW Normal [facility] Comment on above: Result Comment: <100 mg/dl OPTIMAL 100 - 129 mg/dl NEAR OR ABOVE OPTIMAL 130 - 159 mg/dl BORDERLINE HIGH 160 - 189 mg/dl HIGH >190 mg/dl VERY HIGH Performed By: #### L IPID, LIVER, BMP, TSH #### [facility] [address] [address] [address] Cleveland Pennington Triglyceride [Mass/Vol] 245 mg/dL Critically high <=150 [facility] Comment on above: Performed By: #### L IPID, LIVER, BMP, TSH #### [facility] [address] [address] [address] Cleveland Pennington VLDL CALC 49.0 mg/dL Normal [facility] Comment on above: Performed By: #### L IPID, LIVER, BMP, TSH #### [facility] [address] [address] [address] Cleveland Pennington LIVER PROFILEon 02-07-2022 Albumin [Mass/Vol] 3.3 g/dL Critically low 3.4-5.0 [facility] Comment on above: Performed By: #### L IPID, LIVER, BMP, TSH #### [facility] [address] [address] [address] Cleveland Pennington Albumin/Globulin [Mass ratio] 0.8 {ratio} Normal [facility] Comment on above: Performed By: #### L IPID, LIVER, BMP, TSH #### [facility] [address] [address] [address] Cleveland Pennington ALP [Catalytic activity/Vol] 67 U/L Normal 46-116 [facility] Comment on above: Performed By: #### L IPID, LIVER, BMP, TSH #### [facility] [address] [address] [address] Cleveland Pennington ALT [Catalytic activity/Vol] 50 U/L Normal 16-63 [facility] Comment on above: Performed By: #### L IPID, LIVER, BMP, TSH #### [facility] [address] [address] [address] Cleveland Pennington AST [Catalytic activity/Vol] 21 U/L Normal 15-37 [facility] Comment on above: Performed By: #### L IPID, LIVER, BMP, TSH #### [facility] [address] [address] [address] Cleveland Pennington BILI, CONJUGATED 0.1 mg/dL Normal 0.0-0.2 [facility] Comment on above: Performed By: #### L IPID, LIVER, BMP, TSH #### [facility] [address] [place] [address] Dr. Cleveland Pennington Bilirubin [Mass/Vol] 0.6 mg/dL Normal 0.2-1.0 [facility] Comment on above: Performed By: #### L IPID, LIVER, BMP, TSH #### [facility] [address] [place] [address] Dr. Cleveland Pennington Globulin (S) [Mass/Vol] 4.1 g/dL Normal [facility] Comment on above: Performed By: #### L IPID, LIVER, BMP, TSH #### [facility] [address] [place] [address] Dr. Cleveland Pennington Protein [Mass/Vol] 7.4 g/dL Normal 6.1-8.2 [facility] Comment on above: Performed By: #### L IPID, LIVER, BMP, TSH #### [facility] [address] [place] [address] Dr. Cleveland Pennington MICROALBUMIN, RAND URon 04-2 mALB 2.3 mg/L Normal <=30.0 [facility] Comment on above: Performed By: #### M ALBR #### [facility] [address] [place] [address] Dr. Cleveland Pennington PROF CHEM 8 (BAS METB)on Anion gap [Moles/Vol] 9.6 mmol/L Normal [facility] Comment on above: Performed By: #### L IPID, LIVER, BMP, TSH #### [facility] [address] [place] [address] Dr. Cleveland Pennington Calcium [Mass/Vol] 8.7 mg/dL Normal 8.5-10.1 [facility] Comment on above: Performed By: #### L IPID, LIVER, BMP, TSH #### [facility] [address] [address] [address] Cleveland Pennington Chloride [Moles/Vol] 100 mmol/L Normal 98-107 [facility] Comment on above: Performed By: #### L IPID, LIVER, BMP, TSH #### [facility] [address] [address] [address] Cleveland Pennington CO2 [Moles/Vol] 27.6 mmol/L Normal 21.0-32.0 [facility] Comment on above: Performed By: #### L IPID, LIVER, BMP, TSH #### [facility] [address] [address] [address] Cleveland Pennington Creatinine [Mass/Vol] 0.94 mg/dL Normal 0.70-1.30 [facility] Comment on above: Performed By: #### L IPID, LIVER, BMP, TSH #### [facility] [address] [address] [address] Cleveland Pennington EGFR-AF AFGHAN >60 Normal >=60 [facility] Comment on above: Performed By: #### L IPID, LIVER, BMP, TSH #### [facility] [address] [address] [address] Cleveland Pennington EGFR-NON AF AFGHAN >60 Normal >=60 [facility] Comment on above: Performed By: #### L IPID, LIVER, BMP, TSH #### [facility] [address] [address] [address] Cleveland Pennington Glucose [Mass/Vol] 295 mg/dL Critically high 74-106 [facility] Comment on above: Performed By: #### L IPID, LIVER, BMP, TSH #### [facility] [address] [address] [address] Cleveland Pennington Potassium [Moles/Vol] 4.2 mmol/L Normal 3.5-5.1 [facility] Comment on above: Performed By: #### L IPID, LIVER, BMP, TSH #### [facility] [address] [address] [address] Cleveland Pennington Sodium [Moles/Vol] 133 mmol/L Critically low 136-[address] [facility] Comment on above: Performed By: #### L IPID, LIVER, BMP, TSH #### [facility] [address] [place] [address] Dr. Cleveland Pennington Urea nitrogen [Mass/Vol] 14.0 mg/dL Normal 7.0-18.0 [facility] Comment on above: Performed By: #### L IPID, LIVER, BMP, TSH #### [facility] [address] [place] [address] Dr. Cleveland Pennington Urea nitrogen/Creatinine [Mass ratio] 14.9 mg/mg Normal [facility] Comment on above: Performed By: #### L IPID, LIVER, BMP, TSH #### [facility] [address] [place] [address] Dr. Cleveland Pennington TSHon 02-07-2022 TSH 2.757 uIU/mL Normal 0.470-4.680 [facility] Comment on above: Performed By: #### L IPID, LIVER, BMP, TSH #### [facility] [address] [place] [address] Dr. Cleveland Pennington TSH RANGE SEE BELOW Normal [facility] Comment on above: Result Comment: <0.3 4 UIU/ml HYPERTHYROID 0.34-5.60 UIU/ml EUTHYROID >5.60 UIU/ml HYPOTHYROID Performed By: #### L IPID, LIVER, BMP, TSH #### [facility] [address] [place] [address] Dr. Cleveland Pennington VITAMIN D 25 OHon 02-07-2022 VIT D 25-OH 28.6 ng/mL Normal [facility] Comment on above: Performed By: #### P SASC, VITAD #### [facility] [address] [place] [address] Dr. Cleveland Pennington VIT D RANGES SEE BELOW Normal [facility] Comment on above: Result Comment: <20 ng/mL Vit D deficient 20 - <30 ng/mL Vit D insufficient 30 - 100 ng/mL Vit D sufficient >100 ng/mL Potential Toxicity Performed By: #### P SASC, VITAD #### [facility] [address] [place] [address] Dr. Cleveland Pennington Vital Signs Date Time Vital Sign Value Performing Clinician Facility 08-19-2024 08:22-0500 Body height 177.8 cm Ellis Oseguera MD Work Phone: [facility] 08-19-2024 08:22-0500 Body mass index (BMI) [Ratio] 37.88 kg/m2 Ellis Oseguera MD Work Phone: [facility] 08-19-2024 08:22-0500 Body temperature 98.4 [degF] Ellis Oseguera MD Work Phone: [facility] 08-19-2024 08:22-0500 Body weight 119.75 kg Ellis Oseguera MD Work Phone: [facility] 08-19-2024 08:22-0500 Diastolic blood pressure 70 mm[Hg] Ellis Oseguera MD Work Phone: [facility] 08-19-2024 08:22-0500 Heart rate 71 /min Ellis Oseguera MD Work Phone: [facility] 08-19-2024 08:22-0500 Respiratory rate 18 /min Ellis Oseguera MD Work Phone: [facility] 08-19-2024 08:22-0500 SaO2% (BldA) [Mass fraction] 98 % Ellis Oseguera MD Work Phone: [facility] 08-19-2024 08:22-0500 Systolic blood pressure 138 mm[Hg] Ellis Oseguera MD Work Phone: [facility] 10-06-2022 14:30-0500 Body height 175.26 cm Amber Mendoza Other [facility] 10-06-2022 14:30-0500 Body mass index (BMI) [Ratio] 39.13 kg/m2 Amber Mendoza Other [facility] 10-06-2022 14:30-0500 Body temperature 98.1 [degF] Amber Mendoza Other [facility] Other 10-06-2022 14:30-0500 Body weight 120.2 kg Amber Mendoza Other [facility] 10-06-2022 14:30-0500 Respiratory rate 18 /min Amber Mendoza Other [facility] 10-06-2022 14:30-0500 SaO2% (BldA) [Mass fraction] 94 % Amber Mendoza Other [facility] Other Encounters Encounter Date Encounter Type Care Provider Facility Start: 08-19-2024 End: 08-19-2024 Bamboo flowsheet Ellis Oseguera MD Work Phone: [facility] Start: 08-19-2024 End: 08-19-2024 Bamboo flowsheet Ellis Oseguera MD Work Phone: [facility] Start: 08-19-2024 End: 08-19-2024 Clinisync Result Encounter Ellis Oseguera MD Work Phone: [facility] Unsolicited Start: 08-19-2024 End: 08-19-2024 Patient encounter procedure Ellis Oseguera MD Work Phone: [facility] Work Phone: Start: 08-19-2024 End: 08-19-2024 Periodic preventive med est patient 40-64yrs Ellis Oseguera MD Work Phone: [facility] Comment on above: Annual physical exam (Primary Dx); Type 2 diabetes mellitus with hyperglycemia, without long-term current use of insulin ([facility]); Class 2 severe obesity due to excess calories with serious comorbidity and body mass index (BMI) of 37.0 to 37.9 in adult ([facility]); Obstructive sleep apnea (adult) (pediatric) Start: 08-19-2024 End: 08-19-2024 ambulatory ELLIS OSEGUERA Not Available Start: 07-02-2024 End: 07-02-2024 ambulatory NIEVES S MACK Not Available Start: 05-07-2024 End: 05-07-2024 ambulatory NIEVES GIRON Not Available Start: 02-23-2024 End: 02-23-2024 ambulatory ELLIS OSEGUERA Not Available Start: 11-07-2023 End: 11-07-2023 ambulatory ELLIS OSEGUERA Not Available Start: 10-06-2022 End: 10-06-2022 ambulatory Amber Mendoza Other [facility] Start: 10-06-2022 Office outpatient ne w 20 minutes Amber Mendoza [facility] Start: 02-09-2022 Encounter for genera l adult medical examination without abnormal findings DR ELLIS OSEGUERA [facility] Start: 02-07-2022 End: 02-08-[address] ELLIS OSEGUERA Facility:[facility] Start: 02-07-2022 End: 02-08-2022 Encounter for general adult medical examination without abnormal findings DR ELLIS OSEGUERA Facility:[facility] Start: 07-19-2021 End: 07-20-[address] ELLIS OSEGUERA Facility:[facility] Procedures Date Procedure Procedure Detail Performing Clinician Start: 08-19-2024 ALL CBC WITH AUTO DIFF Ellis Oseguera MD Work Phone: Start: 02-07-[address] ELLIS BLACK Comment on above: Performed By: #### P ANDERSON SANATORIUMLAKESHIA #### [facility] [address] [place] [address] Dr. Cleveland Pennington Plan of Treatment Date Care Activity Detail Author Start: 08-03-2026 Screening for malign ant neoplasm of colon [facility] Start: 01-21-2026 Glaucoma screening Diabetes: R etinopathy Screening [facility] Start: 02-22-2025 Urine screening for protein Diabetes: Urine Protein Screening [facility] Start: 11-20-2024 End: 11-20-2024 Patient encounter procedure 11/20/2024 7:30 AM EST Office Visit [facility] [address] [place] [address] Ellis Oseguera MD [address] [place] [address] [facility] Start: 08-25-2024 Hemoglobin A1c measurement Diabetes: Hemoglobin A1C [facility] Start: 08-19-2024 End: 08-19-2025 Basic metabolic 1998 panel - Serum or Plasma Basic metabolic panel Lab Routine Annual physical exam Expected: 08/19/2024 (Approximate), Expires: 08/19/2025 [facility] Comment on above: Expected: 08/19/2024 (Approximate), Expires: 08/19/2025 Start: 08-19-2024 End: 08-19-2025 CBC W Auto Differential panel - Blood CBC and differential Lab Routine Annual physical exam Expected: 08/19/2024 (Approximate), Expires: 08/19/2025 [facility] Comment on above: Expected: 08/19/2024 (Approximate), Expires: 08/19/2025 Start: 08-19-2024 End: 08-19-2025 Hemoglobin A1c/Hemoglobin.total in Blood Hemoglobin A1c Lab Routine Annual physical exam Expected: 08/19/2024 (Approximate), Expires: 08/19/2025 [facility] Work Phone: Comment on above: Expected: 08/19/2024 (Approximate), Expires: 08/19/2025 Start: 08-19-2024 End: 08-19-2025 Hepatic function 2000 panel - Serum or Plasma Hepatic function panel Lab Routine Annual physical exam Expected: 08/19/2024 (Approximate), Expires: 08/19/2025 [facility] Comment on above: Expected: 08/19/2024 (Approximate), Expires: 08/19/2025 Start: 08-19-2024 End: 08-19-2025 Lipid 1996 panel - Serum or Plasma Lipid panel Lab Routine Annual physical exam Expected: 08/19/2024 (Approximate), Expires: 08/19/2025 [facility] Comment on above: Expected: 08/19/2024 (Approximate), Expires: 08/19/2025 Start: 08-19-2024 End: 08-19-2025 Prostate specific Ag [Mass/volume] in Serum or Plasma PSA Lab Routine Annual physical exam Expected: 08/19/2024 (Approximate), Expires: 08/19/2025 [facility] Comment on above: Expected: 08/19/2024 (Approximate), Expires: 08/19/2025 Start: 08-19-2024 End: 08-19-2025 Thyrotropin [Units/volume] in Serum or Plasma TSH Lab Routine Annual physical exam Expected: 08/19/2024 (Approximate), Expires: 08/19/2025 [facility] Comment on above: Expected: 08/19/2024 (Approximate), Expires: 08/19/2025 Start: 08-19-2024 End: 08-19-2024 Patient encounter procedure 08/19/2024 8:00 AM EST Office Visit [facility] [address] [place] [id number] Ellis Oseguera MD [address] [place] [phone] [facility] Start: 06-16-2024 Influenza vaccination Influenza Vacc ine (#1) [facility] Start: 07-11-2019 Urine screening for protein Diabetes: Urine Protein Screening [facility] Start: 06-25-2019 Hemoglobin A1c measurement Diabetes: Hemoglobin A1C [facility] Start: 1975 Screening for malign ant neoplasm of colon [facility] Immunizations Immunization Date Immunization Notes Care Provider Fa cility 06-27-2021 Moderna SARS-CoV-2 Vaccination Ellis Oseguera MD Work Phone: [facility] Payers Date Payer Category Payer [facility] BCBS [id number] 2021 [employer] [place] [employer] [place] M9PAN [id number] 1977 Unknown [id number] 1977 Unknown [id number] 1977 Unknown [id number] 2.9 1977 Unknown [id number] [id number] 1977 Unknown [id number] 2.9 1977 Unknown [id number] 2.9 1977 Unknown [id number] 2.9 1977 Unknown [id number] 1959 Unknown [id number] Social History Date Type Detail Facility Start: 07-02-2024 End: 08-19-2024 Sex Assigned At [facility] Start: 11-07-2023 Tobacco smoking status ILIS Never smoked tobacco [facility] Start: 11-07-2023 Tobacco use and exposure Smokeless tobacco non-user [facility] Start: 07-02-2024 End: 08-19-2024 Alcoholic beverage intake Current drinker of alcohol (finding) [facility] Start: 07-02-2024 End: 08-19-2024 Alcoholic beverage intake [facility] Start: 07-02-2024 Alcohol Comment every 2 months [facility] Start: 1975 Sex assigned at Not on file [facility] How often do you nee d to have someone help you when you read instructions, pamphlets, or other written material from your doctor or pharmacy [SILS] Never [facility] Do you belong to any clubs or organizations such as judaism groups, unions, fraternal or athletic groups, or school groups? Yes [facility] Are you now , , , , never or living with a partner? [facility] How often to you hav e a drink containing alcohol? Monthly or less [facility] How often do you hav e 6 or more drinks on 1 occasion? Never [facility] Do you feel stress - tense, restless, nervous, or anxious, or unable to sleep at night because your mind is troubled all the time - these days [OSQ] Only a little [facility] (I/We) worried wheth er (my/our) food would run out before (I/we) got money to buy more. Sometimes true [facility] The food that (I/we) bought just didn't last, and (I/we) didn't have money to get more. Never true [facility] In the past 12 month s, was there a time when you were not able to pay the mortgage or rent on time? No [facility] History of Present illness Narrative 08-19-2024 Ellis Oseguera MD - 08/19/2024 8:48 AM Jose Oseguera MD - 08/19/2024 8:47 AM Jose Oseguera MD - 08/19/2024 8:47 AM Jose Oseguera MD - 08/19/2024 8:47 AM EST Note Date & Type Note Facility 08-19-2024 History of Presen t illness Narrative Associated Problem(s): Obstructive sleep apnea (adult) (pediatric) Sleeping well with CPAP and use nightly. Associated Problem(s): Type 2 diabetes mellitus with hyperglycemia, without long-term current use of insulin ([facility]) Due for A1C. Add ozempic. Associated Problem(s): Class 2 severe obesity due to excess calories with serious comorbidity and body mass index (BMI) of 37.0 to 37.9 in adult ([facility]) Weight loss indicated. Associated Problem(s): Annual physical exam Due for labs. Discussed proper diet and regular aerobic exercise. Need aerobic exercise 5-6 days a week for 30 minutes at a time. Smaller portions and limit total calories. Cologuard normal in 2022. Tetanus every 10 years. Advised not to smoke. Discussed daily Aspirin therapy. Images from the original note were not included. Subjective Patient ID: Kristi Gomez is a 49 y.o. male who presents for Follow-up (6 m). Presents for annual PE. Patient stable today. Weight up 20 pounds in the past few months but only 8 pounds in the past year. Tries to stay active and goes to the gym about 5 days a week. Tries to watch diet and eat healthy. Increased fruits and vegetables. Smaller portions and limits snacking. Tries to limit total daily calories. Due for labs. Interested in ozempic. Taking glipizide and due for A1C. Denies signs of elevated BS such as polyuria, polyphagia or polydipsia. BLESSING controlled with CPAP. Using machine nightly for entire time asleep, typically 6-8 hours. Sleeping well and not waking up as much during night. Rested in am and not as tired during day. Review of Systems Constitutional: Negative for fatigue. Respiratory: Negative for cough, shortness of breath and wheezing. Cardiovascular: Negative for chest pain and palpitations. Gastrointestinal: Negative for abdominal pain, diarrhea, nausea and vomiting. Genitourinary: Negative for dysuria. Objective Physical Exam Constitutional: General: He is not in acute distress. Appearance: Normal appearance. HENT: Head: Normocephalic. Right Ear: Tympanic membrane and ear canal normal. Left Ear: Tympanic membrane and ear canal normal. Eyes: Extraocular Movements: Extraocular movements intact. Pupils: Pupils are equal, round, and reactive to light. Cardiovascular: Rate and Rhythm: Normal rate and regular rhythm. Heart sounds: No murmur heard. No friction rub. No gallop. Pulmonary: Breath sounds: Normal breath sounds. No wheezing, rhonchi or rales. Abdominal: General: Bowel sounds are normal. There is no distension. Palpations: Abdomen is soft. Tenderness: There is no abdominal tenderness. There is no guarding or rebound. Musculoskeletal: General: Normal range of motion. Left lower leg: No edema. Neurological: General: No focal deficit present. Mental Status: He is alert. Cranial Nerves: No cranial nerve deficit. Deep Tendon Reflexes: Reflexes normal. Assessment/Plan Problem List Items Addressed This Visit Obstructive sleep apnea (adult) (pediatric) Sleeping well with CPAP and use nightly. Type 2 diabetes mellitus with hyperglycemia, without long-term current use of insulin ([facility]) Due for A1C. Add ozempic. Relevant Medications semaglutide (Ozempic, 0.25 or 0.5 MG/DOSE,) 2 MG/1.5ML solution pen-injector Annual physical exam - Primary Due for labs. Discussed proper diet and regular aerobic exercise. Need aerobic exercise 5-6 days a week for 30 minutes at a time. Smaller portions and limit total calories. Cologuard normal in 2022. Tetanus every 10 years. Advised not to smoke. Discussed daily Aspirin therapy. Relevant Orders Hemoglobin A1c Basic metabolic panel CBC and differential Hepatic function panel Lipid panel PSA TSH Class 2 severe obesity due to excess calories with serious comorbidity and body mass index (BMI) of 37.0 to 37.9 in adult ([facility]) Weight loss indicated. documented in this encounter [facility] Evaluation note 10-06-2022 Note Date & Type [...] weeks for the cough to go away. [facility] Other Clinical Note 03-29-2022 Note Date & [...] doctor. This is important. Medicines ? Take zlis-atc-avsmacu and prescription medicines only as told by [...] forces your h (more content not included)... [facility] Clinical Note 07-20-2021 Note Date & [...] by: BERNARDINO DEAN Date: 2021-07-20 06:09 [facility] Evaluation note Note Date & Type Note Facility Evaluation note Diagnosis Type 2 diabetes mellitus with hyperglycemia, without long-term current use of insulin (CMS/HCC)- Primary Generalized anxiety disorder (CMS/HCC) Generalized anxiety disorder Obstructive sleep apnea (adult) (pediatric) Type 2 diabetes mellitus with hyperglycemia, without long-term current use of insulin ([facility])- Primary Obstructive sleep apnea (adult) (pediatric) Benign prostatic hyperplasia with urinary frequency ADD (attention deficit disorder) without hyperactivity Attention deficit disorder without mention of hyperactivity MDD (major depressive disorder), recurrent, in full remission ([facility]) Annual physical exam- Primary Routine general medical examination at a health care facility Type 2 diabetes mellitus with hyperglycemia, without long-term current use of insulin ([facility]) Class 2 severe obesity due to excess calories with serious comorbidity and body mass index (BMI) of 37.0 to 37.9 in adult ([facility]) Obstructive sleep apnea (adult) (pediatric) documented in this encounter [facility] History general Narrative - Reported Note Date & Type Note Facility History general Narrative - Reported Type Medical History Diabetes Type 2 Medical History Asthma Surgical History Gallbladder removal 2001 [facility] Other Summary Purpose Family History No Family History Records FoundNo Family History Records FoundNo Family History Records Found Advance Directives No Advanced Directives Records FoundNo Advanced Directives Records FoundNo Advanced Directives Records Found Additional Source Comments (unrecognized sect ion and content) No Status Records FoundNo Status Records FoundNo Status Records Found INFORMATION SOURCE (unrecogn ized section and content) DATE CREATED AUTHOR 02/12/2022 [facility] DATE CREATED AUTHOR AUTHOR'S ORGANIZ ATION 04/04/2022 [facility] DATE CREATED AUTHOR AUTHOR'S ORGANIZ ATION 08/19/2024 [facility] EPIC REASON FOR VISIT (unrecogniz ed section and content) Reason Comments Follow-up 6 m Care Teams (unrecognized sec tion and content) Sewing Line Baler Relationship Specialty Start Date End Date Ellis Oseguera MD [address] [place] [id number] PCP - General Family Medicine 06/16/23 Ellis Oseguera MD [address] [place] [address] [facility]CP - [facility] 01/15/24 Sewing Line Baler Relationship Specialty Start Date End Date Ellis Oseguera MD [address] [place] [id number] PCP - [facility] 06/16/23 Ellis Oesguera MD [address] [place] [address] PCP [facility] 01/15/24 Sewing Line Baler Relationship Specialty Start Date End Date Ellis Oseguera MD [address] [place] [address] PCP - [facility] 06/16/23 Ellis Oseguera MD [address] [place] [address] [facility] 01/15/24 FOR RECORDS PERTAINING TO PATIENTS WHO ARE [...] BE BASED ON THE PRIMARY CLINICAL RECORDS. [facility] [facility]. provides no warranty or guarantee of the accuracy or completeness of information in this document.
--- NOTE | 2024-09-09 16:45 | XR_ITS ---
The [address] [address] Patient Name: KRISTI GOMEZ MRN: [id number] date: 1975 Sex: M Assigned Patient Location: ER Current Patient Location: ER Accession/Order Number: [id number] Exam Date: 09/09/2024 17:00 Report Date: 09/09/2024 17:52 At the request of: JOHN ALATORRE Procedure: XR chest 2V EXAM: XR chest 2V HISTORY: cp COMPARISON: 08/20/2020 TECHNIQUE: Upright PA and lateral chest x-ray FINDINGS: The heart is not enlarged and the vasculature is not distended. No acute infiltrate, effusion or pneumothorax is identified. The osseous structures are grossly intact. XR/XR chest 2V IMPRESSION: No acute infiltrate or evidence of cardiac decompensation. The overall appearance of the chest has not changed significantly. Electronically authenticated by: MICHELLE CHONG Date: 09/09/2024 17:52
--- NOTE | 2024-09-09 16:45 | ECG_ITS ---
The 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
[2024-09-09 17:04] VITALS: BP 132/88; PULSE 69; O2SAT 96
[2024-09-09 17:13] LABS: Basophils Absolute Auto 0.1 10^3/uL (0.0-0.1); Basophils Percent Auto 0.9 % (0.2-2.0); Eosinophils Absolute Auto 0.1 10^3/uL (0.0-0.7); Eosinophils Percent Auto 0.6 % (0.9-7.0); Hematocrit 40.3 % (42.0-54.0); Hemoglobin 12.8 g/dL (14.0-18.0); Immature Granulocytes Abs Auto 0.04 10^3/uL (0.00-0.03); Immature Granulocytes Pct Auto 0.4 % (0.0-0.5); Lymphocytes Absolute Auto 3.2 10^3/uL (1.2-3.8); Lymphocytes Percent Auto 34.1 % (20.5-60.0); Mean Corpuscular HGB Conc 31.8 g/dL (29.9-35.2); Mean Corpuscular Hemoglobin 20.8 pg (25.9-34.0); Mean Corpuscular Volume 65.4 fL (80.0-94.0); Mean Platelet Volume 8.8 fL (9.5-13.5); Monocytes Absolute Auto 0.8 10^3/uL (0.3-0.8); Monocytes Percent Auto 8.8 % (1.7-12.0); Neutrophils Absolute Auto 5.2 10^3/uL (1.4-6.5); Neutrophils Percent Auto 55.2 % (43.0-75.0); Platelet Count 262 10^3/uL (150-450); Red Blood Count 6.16 10^6/uL (4.70-6.10); Red Cell Distribution Width 18.1 % (11.0-15.0); White Blood Count 9.4 10^3/uL (4.0-11.0)
[2024-09-09 17:21] LABS: D Dimer <0.19 mg/L FEU (<=0.59)
[2024-09-09] MEDS: ASPIRIN 81 MG TAB.CHEW 162 MG PO (17:21)
[2024-09-09 17:23] LABS: Alanine Aminotransferase 30 U/L (16-63); Albumin Globulin Ratio 0.9; Albumin Level 3.5 g/dL (3.4-5.0); Alkaline Phosphatase 59 U/L (46-116); Anion Gap 13.9; Aspartate Amino Transferase 21 U/L (15-37); BUN Creatinine Ratio 16.2; Bilirubin Total 0.4 mg/dL (0.2-1.0); Chloride 102 mmol/L (98-107); Estimated GFR (African America >60 (>=60 mL/min/1.73m^2); Estimated GFR (Non-African Ame >60 (>=60 mL/min/1.73m^2); Glucose 130 mg/dL (74-106); Potassium 3.9 mmol/L (3.5-5.1); Sodium 139 mmol/L (136-145); Total Protein 7.5 g/dL (6.4-8.2)
[2024-09-09 17:25] LABS: Troponin I High Sensitivity 6.5 pg/mL (4.0-76.1)
--- NOTE | 2024-09-09 17:31 | ED_ITS ---
HPI HPI - General Adult General Chief complaint: Chest Pain Stated complaint: FUNNY FEELING IN CHEST Time Seen by Provider: 09/09/24 16:44 Source: patient Mode of arrival: walk-in Limitations: no limitations History of Present Illness HPI narrative: Patient is a 49-year-old male who is presenting to the ER today with chief complaint of 2 to 3-week history of intermittent chest ache/heaviness/burning sensation. Patient states the discomfort at most is only been a 3/10. Patient states that he has been lifting weights and also doing cardiovascular activity and does not have the ache, discomfort, pain when he is doing cardiovascular work. Patient states when he is done doing the workout and cardiovascular he does not typically have the symptoms but today he did and has been more somewhat persistent. He did finally mention to his today the symptoms has been having for the past 2 to 3 weeks. 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 Patient has risk of obesity, age, and 3 risk factors of size, diabetes, cholesterol. Patient quit smoking 14 years ago, patient did smoke for approximately 15 years, half a pack to a pack a day. No cocaine use. No recent traveling. Patient runs a [employer] motor, no heavy lifting twisting or turning at work. No significant activity this past weekend. Patient has never had a stress test or echocardiogram. Patient's PCP is Dr. Hicks. Patient did mention to this to his PCP several weeks ago when he was in the office for a well check, and they were going to keep an eye on it. Patient last hemoglobin A1c was in the mid to upper 6. Patient's on oral tablets for diabetes. Patient compliant with medication. He takes no aspirin daily. Patient says that several uncles had heart attacks and have in the 40s and 50s on his mom side. All systems are negative except as noted/marked. All systems reviewed and otherwise negative. Nurses note and vital signs reviewed and patient is not hypoxic. General: The patient appears well and in no apparent distress. Patient is resting comfortably on cart. Patient is not toxic, lethargic, or listless Skin: Warm, dry, no pallor noted. There is no rash noted. No petechiae, purpura. Head: Normocephalic, atraumatic Eye: Normal conjunctiva, no drainage, EOMI. PERRL Ears, Nose, Mouth, and Throat: oral mucosa is moist. Nares patent. Mouth without vesicles. Cardiovascular: Regular Rate and Rhythm, no murmur, gallop, rub; no tenderness to palpation to bilateral anterior, lateral, posterior chest wall. Respiratory: Patient is in no distress, no accessory muscle use, lungs are clear to auscultation, no wheezing, rales or rhonchi Back: non-tender, no CVA tenderness bilaterally to percussion. No CT LS midline pain GI: no tenderness to palpation, no masses appreciated. No rebound, guarding, or rigidity noted. No distention Musculoskeletal: Patient has full range of motion of all of the extremities, no motor, sensory, or focal neurological deficits Neurological: A&O x4, normal speech Psychiatric: Cooperative Related Data Home Medications ?Medication ?Instructions ?Recorded ?Confirmed semaglutide 0.25 mg or 0.5 mg (2 0.25 mg subcut DAILY 09/09/24 09/09/24 mg/3 mL) subcutaneous pen injector (Ozempic) Allergies Allergy/AdvReac Type Severity Reaction Status Date / Time No Known Drug Allergies Allergy Verified 09/09/24 16:42 Opioid HPI Opioid Management Most Recent Opioid Data: No Data to Display PFSH PFSH Social History Little interest or pleasure in doing things: not at all Feeling down, depressed, or hopeless: not at all Exam Constitutional Vital Signs, click to edit/add: Last Vital Signs Temp 98.2 F 09/09/24 16:38 Pulse 69 09/09/24 17:04 Resp 21 H 09/09/24 17:04 BP 132/88 09/09/24 17:04 Pulse Ox 96 09/09/24 17:04 O2 Del Method Room Air 09/09/24 16:38 Course Vital Signs Vital signs: Vital Signs Temperature 98.2 F 09/09/24 16:38 Pulse Rate 68 09/09/24 16:38 Respiratory Rate 18 09/09/24 16:38 Blood Pressure 149/91 H 09/09/24 16:38 Pulse Oximetry 99 09/09/24 16:38 Oxygen Delivery Method Room Air 09/09/24 16:38 Temperature 98.2 F 09/09/24 16:38 Pulse Rate 69 09/09/24 17:04 Respiratory Rate 21 H 09/09/24 17:04 Blood Pressure 132/88 09/09/24 17:04 Pulse Oximetry 96 09/09/24 17:04 Oxygen Delivery Method Room Air 09/09/24 16:38 Medical Decision Making MDM Narrative Medical decision making narrative: 173 initial testing has been negative. D-dimer, troponin, EKG and initial chest x-ray showed no acute findings. I have already spoken to PCP, Dr. Hicks. He is aware of patient's visit for chest discomfort. He will follow- up with the patient in the outpatient setting and have additional cardiac testing as indicated ordered. 1844 Patient 2 troponins were negative. Patient was given 2 baby aspirin prophylactically. Education was done at bedside and on discharge paperwork. Patient will follow-up with PCP. Dr. Hicks is a regular of his visit as well. No questions at discharge Patient has a heart score 3. 1 for age, 2 for risk factor. Lab Data Lab results reviewed: Yes I reviewed the patient's lab results Labs: Lab Results 09/09/24 09/09/24 Range/Units 16:50 18:17 WBC 9.4 (4.0-11.0) 10^3/uL RBC 6.16 H (4.70-6.10) 10^6/uL Hgb 12.8 L (14.0-18.0) g/dL Hct 40.3 L (42.0-54.0) % MCV 65.4 L (80.0-94.0) fL MCH 20.8 L (25.9-34.0) pg MCHC 31.8 (29.9-35.2) g/dL RDW 18.1 H (11.0-15.0) % Plt Count 262 (150-450) 10^3/uL MPV 8.8 L (9.5-13.5) fL Neut % (Auto) 55.2 (43.0-75.0) % Lymph % (Auto) 34.1 (20.5-60.0) % [place] % (Auto) 8.8 (1.7-12.0) % Eos % (Auto) 0.6 L (0.9-7.0) % Baso % (Auto) 0.9 (0.2-2.0) % Neut # (Auto) 5.2 (1.4-6.5) 10^3/uL Lymph # (Auto) 3.2 (1.2-3.8) 10^3/uL [place] # (Auto) 0.8 (0.3-0.8) 10^3/uL Eos # (Auto) 0.1 (0.0-0.7) 10^3/uL Baso # (Auto) 0.1 (0.0-0.1) 10^3/uL Abs Immat Gran (auto) 0.04 H (0.00-0.03) 10^3/uL Imm/Tot Granulo (auto) 0.4 (0.0-0.5) % D-Dimer <0.19 (<=0.59) mg/L FEU Sodium 139 (136-145) mmol/L Potassium 3.9 (3.5-5.1) mmol/L Chloride 102 (98-107) mmol/L Carbon Dioxide 27.0 (21.0-32.0) mmol/L Anion Gap 13.9 BUN 16.0 (7.0-18.0) mg/dL Creatinine 0.99 (0.70-1.30) mg/dL Est GFR ( Amer) >60 (>=60 mL/min/1.73m^2) Est GFR (Non-Af Amer) >60 (>=60 mL/min/1.73m^2) BUN/Creatinine Ratio 16.2 Glucose 130 H (74-106) mg/dL Calcium 9.0 (8.5-10.1) mg/dL Total Bilirubin 0.4 (0.2-1.0) mg/dL AST 21 (15-37) U/L ALT 30 (16-63) U/L Alkaline Phosphatase 59 (46-116) U/L Troponin I High Sens 6.5 5.3 (4.0-76.1) pg/mL Total Protein 7.5 (6.4-8.2) g/dL Albumin 3.5 (3.4-5.0) g/dL Globulin 4.0 g/dL Albumin/Globulin Ratio 0.9 Lipase 53.0 (16.0-77.0) U/L ECG Data Attestation: I personally reviewed and interpreted this ECG as follows: (EKG interpretation. Normal sinus rhythm at 63 beats a minute. Normal axis devia tion. No acute ST elevation, no acute ectopy. QTc of 386.) Discharge Plan Discharge Chief Complaint: Chest Pain Clinical Impression: Atypical chest pain Patient Disposition: Home, Self-Care Time of Disposition Decision: 18:47 Condition: Fair Prescriptions / Home Meds: No Action Ozempic 0.25 mg or 0.5 mg (2 mg/3 mL) pen injector 0.25 mg SUBCUT DAILY Rx Instructions: Takes once weekly Print Language: Estonian Instructions: Chest Pain (ED) Additional Instructions: I have discussed your case with Dr. Hicks. The office tomorrow, they will get additional outpatient test ordered as needed. Start taking daily baby aspirin and to follow-up with PCP for further recommendations. Referrals: Ellis Hicks MD [Primary Care Provider] - 1 week
[2024-09-09 18:40] LABS: Troponin I High Sensitivity 5.3 pg/mL (4.0-76.1)
[2024-09-09 18:54] VITALS: BP 125/75; PULSE 68; O2SAT 98
== END 2024-09-09 18:54 | disposition home or self-care (01) ==
PROVIDERS: Emergency Provider Emergency Medicine; PCP Family Medicine
DX: R07.89 Other chest pain (principal); Z87.891 Personal history of nicotine dependence; E11.9 Type 2 diabetes mellitus without complications; Z79.84 Long term (current) use of oral hypoglycemic drugs; Z79.85 Long-term (current) use of injectable non-insulin antidiabetic drugs
CPT/HCPCS: 36415; 71046; 80053; 83690; 84484; 85025; 85378; 93005; 99285